=== PATIENT | male | born 1990 | race Caucasian/White ===

== ENCOUNTER 2016-09-11 15:40 | Emergency (ER) | payer OTHER ==
[2016-09-11 15:57] VITALS: BP 126/83; PULSE 78; TEMP 97.5; BMI 24.0
--- NOTE | 2016-09-11 17:36 | PDOC ---
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 The patient states that she was riding a bus today when she began to feel increased anxiety triggered by audible hallucinations, claustrophobia, and paranoia (feels like people are watching me). The patient reports that on Wednesday his psychiatrist halved his dose of Seroquel. The patient states that today he went back to his psychiatrist regarding his symptoms and was prescribed Quetiapine and Fluoxetine in addition to his current medications Geodon, Prozac, and Seroquel (started 08/11/16). The patient states that earlier he was today hearing voices but currently he is not. The patient reports associated difficulty breathing, head numbness. The patient denies suicidal thoughts, homicidal thoughts, and hallucinations. The patient denies fever, chills, and sweats. The patient denies nausea, vomiting, and diarrhea. The patient denies chest pain, palpitations, cough, and shortness of breath. Psychiatrist: Dr. Vinnie Mei: [phone] PAST MEDICAL HISTORY: Anxiety, hallucinations, depression, TBI (age 7) PAST SURGICAL HISTORY: No significant history reported FAMILY HISTORY: No pertinent history reported SOCIAL HISTORY: None reported MEDICATIONS: Reviewed ALLERGIES: As per nursing notes <Benjamín Corona - Last Filed: 09/11/16 17:49> - General Chief Complaint: Psychiatric Stated Complaint: ANXIETY Time Seen by Provider: 09/11/16 15:52 Past History - Immunization History Immunization Up to Date: Yes - Social History Smoking Status: Former smoker Number of Cigarettes Per Day: 0 <Lynne Leon - Last Filed: 09/11/16 17:43> <Benjamín Corona - Last Filed: 09/11/16 17:49> - Past Medical History Allergies/Adverse Reactions: Allergies No Known Allergies Allergy (Verified 09/11/16 15:44) Home Medications: Ambulatory Orders NK [No Known Home Medication] 09/11/16 *Review of Systems - Review of Systems Able to Perform ROS?: Yes Comments:: 09/11/16 17:41 GENERAL/CONSTITUTIONAL: Yes: Anxiety No: fever, chills, weakness, loss of appetite. HEAD, EYES, EARS, NOSE AND THROAT: No: change in vision, ear pain, discharge, sore throat, throat swelling. CARDIOVASCULAR: No: chest pain, lightheadedness, palpitations, syncope RESPIRATORY: Yes: Difficulty breathing No: cough, hemoptysis, stridor. GASTROINTESTINAL: No: nausea, vomiting, abdominal cramping, diarrhea, rectal bleeding, constipation. GENITOURINARY: No: dysuria, hematuria, frequency, urgency, flank pain. MUSCULOSKELETAL: No: back pain, neck pain, joint pain, muscle swelling or pain SKIN: No: lesions, pallor, rash or easy bruising. NEUROLOGIC: Yes: Head numbness, Audible hallucinations, Paranoia, Claustrophobia No: vertigo, paresthesias, weakness ENDOCRINE: No: unexplained weight gain or loss HEMATOLOGIC/LYMPHATIC: No: anemia, easy bleeding, swelling nodes <Benjamín Corona - Last Filed: 09/11/16 17:49> *Physical Exam - Vital Signs Last Vital Signs Temp Pulse Resp BP Pulse Ox 97.5 F L 78 18 126/83 100 09/11/16 15:40 09/11/16 15:40 09/11/16 15:40 09/11/16 15:40 09/11/16 15:40 <Lynne Leon - Last Filed: 09/11/16 17:43> - Vital Signs Last Vital Signs Temp Pulse Resp BP Pulse Ox 97.5 F L 78 18 126/83 100 09/11/16 15:40 09/11/16 15:40 09/11/16 15:40 09/11/16 15:40 09/11/16 15:40 - Physical Exam Comments: 09/11/16 17:41 GENERAL: The patient is anxious appearing. In no acute distress. Alert and oriented x3 HEAD: Normal with no signs of trauma. EYES: (+) Bilaterally dilated pupils 6mm minimal constriction , EOMI, sclera anicteric, conjunctiva clear. ENT: Ears normal, nares patent, oropharynx clear without exudates. Moist mucous membranes. NECK: Normal range of motion, supple without lymphadenopathy, JVD, or masses. LUNGS: Breath sounds equal, clear to auscultation bilaterally. No wheezes, and no crackles. HEART:Regular rate and rhythm, normal S1 and S2 without murmur, rub or gallop. ABDOMEN: Soft, nontender, normoactive bowel sounds. No guarding, no rebound. EXTREMITIES: Normal range of motion, no edema. No clubbing or cyanosis. No erythema, or tenderness. NEUROLOGICAL: Cranial nerves II through XII grossly intact. Normal speech. No focal neurological deficits. MUSCULOSKELETAL: Back nontender to palpation, no CVA tenderness SKIN: Warm, Dry, normal turgor, no rashes or lesions noted. <Benjamín Corona - Last Filed: 09/11/16 17:49> Plan - Progress Note Progress Note: 09/11/16 17:26 - Order(s) Order(s): Orders Medication Instructions Recorded NK [No Known Home Medication] 09/11/16 <Lynne Leon - Last Filed: 09/11/16 17:43> - Order(s) Order(s): Orders Medication Instructions Recorded NK [No Known Home Medication] 09/11/16 <Benjamín Corona - Last Filed: 09/11/16 17:49> *DC/Admit/Observation/Transfer - Discharge Dispostion Admit: No <Lynne Leon - Last Filed: 09/11/16 17:43> - Attestations Scribe Attestion: 09/11/16 17:42 Documentation prepared by Benjamín Corona, acting as medical staff manager for Lynne Leon MD. <Benjamín Corona - Last Filed: 09/11/16 17:49> Diagnosis at time of Disposition: Anxiety - Discharge Dispostion Disposition: HOME Condition at time of disposition: Stable - Patient Instructions Printed Discharge Instructions: DI for Anxiety -- Adult Additional Instructions: Rocco Thank you for coming in to the ER today Please return to the ER immediately if you feel unsafe or if you feel that you are going to harm yourself YOU MUST check in with Dr Ferguson in 2 days Please take Seroquel 25mg (your new prescription) at night along with your prior prescription for Seroquel 200mg daily Medical Decision Making - Medical Decision Making 09/11/16 17:27 A portion of this note was documented by scribe services under my direction. I have reviewed the details of the note, within reason, and agree with the documentation with the following case summary and management plan written by me. Nursing documentation reviewed and incorporated into medical decision making This is a 26 yo M with a history of Schizophrenia and Anxiety Pt is followed by Dr Ferguson at [facility] History is per him Briefly, pt came to psychiatric attention approximately 14 months ago when he attempted suicide by hanging and drinking mouth wash Pt was hospitalized at that time He was started on three medications PT was lost to follow up to Dr. Ferguson He recently returned to this area He has since had a three week psychiatric admission to [facility] HE was discharged several weeks ago He was discharged on Seroquel 200mg po daily (am), Fluoxetine 20 mg po daily, Geodon 80mg po BID Pt was asked last week to switch Seroquel to 200mg po qhs instead of am to decrease his somnolence PT was seen by his psychiatrist today Dr Ferguson added Seroquel 25mg to his night time dose of Seroquel 200mg qhs Pt denies suicidality PT denies homicidality He hears voices but none are telling him to do anything dangerous to anyone Pt believes that his medications were changed such that he is not longer bid Case reviewed with Dr Ferguson He requests that I re assure this patient Given he is not suicidal or homicidal Will: Discharge to home Will re assure patient re: plan for follow up on Wednesday <Lynne Leon - Last Filed: 09/11/16 17:43> - Medical Decision Making 09/11/16 16:[address] Vinnie Rangel placed. 09/11/16 16:[address] Vinnie Rangel placed. 09/11/16 17:04 Dr. Vinnie Rangel return call to ER. Case discussed. Agreed to discharge. <Benjamín Corona - Last Filed: 09/11/16 17:49>
== END 2016-09-11 17:55 | disposition home or self-care (01) ==
LOC: FER 15:40
DX: F41.9 Anxiety disorder, unspecified (principal); Z87.820 Personal history of traumatic brain injury; Z87.891 Personal history of nicotine dependence
CPT/HCPCS: 99282-25

== ENCOUNTER 2016-09-15 14:07 | Emergency (ER) | payer OTHER ==
[2016-09-15 14:17] VITALS: TEMP 97.8; BMI 24.0
[2016-09-15 14:55] LABS: URINE APPEARANCE CLEAR; URINE BILIRUBIN NEGATIVE (NEGATIVE); URINE BLOOD NEGATIVE (NEGATIVE); URINE COLOR LTYELLOW; URINE GLUCOSE (UA) NEGATIVE (NEGATIVE); URINE KETONE NEGATIVE (NEGATIVE); URINE LEUK ESTERASE NEGATIVE (NEGATIVE); URINE NITRITE NEGATIVE (NEGATIVE); URINE PROTEIN NEGATIVE (NEGATIVE); URINE UROBILINOGEN NEGATIVE E.U./dl (0.2-1.0)
[2016-09-15 15:13] LABS: URINE MARIJUANA THC NEGATIVE ng/ml (CUTOFF=50)
--- NOTE | 2016-09-15 16:02 | PDOC ---
History of Present Illness - General History Source: Patient Exam Limitations: No Limitations - History of Present Illness Initial Comments: 09/15/16 16:02 The patient is a 26 year old male, with no significant past medical history who presents to the emergency department with feelings of paranoia and anxiety since wednesday. Patient reports feeling that the [place] were closing in on him, and having social anxiety in crowded areas. He denies hearing any voices. He denies any previous psychiatric evaluation or diagnosis . He denies having thoughts of hurting himself or others. No other complaints at this time. He denies any recent fevers, chills, headache or dizziness. He denies any recent nausea, vomit, diarrhea or constipation. Allergies: NKA Past surgical history: None Social History: Nonsmoker. <Rigo Cleaning - Last Filed: 09/15/16 16:02> - General History Source: Patient, Old Records Exam Limitations: No Limitations <Kadi Flores - Last Filed: 09/15/16 18:15> - General Chief Complaint: Psychiatric Stated Complaint: PARANOID/ANXIOUS Time Seen by Provider: 09/15/16 14:12 Past History <Rigo Cleaning - Last Filed: 09/15/16 16:02> - Past Medical History Anemia: No Asthma: No Cancer: No Cardiac Disorders: No CVA: No COPD: No CHF: No Dementia: No Diabetes: No GI Disorders: Yes (dificulty swallowing, GI is planned for 01/09/16) Disorders: No HTN: No Hypercholesterolemia: No Liver Disease: No Seizures: No Thyroid Disease: No Other medical history: HEAD INJURY AT 7 YERAS OF AGE, INTERNAL BLEEDING - Surgical History Abdominal Surgery: No Appendectomy: No Cardiac Surgery: No Cholecystectomy: No Lung Surgery: No Neurologic Surgery: No - Immunization History Immunization Up to Date: Yes - Psycho/Social/Smoking Cessation Hx Anxiety: Yes Suicidal Ideation: No (DENIES SUICIDAL IDEATION) Smoking History: Smoker current status UNK Have you smoked in the past 12 months: No Number of Cigarettes Smoked Daily: 0 Information on smoking cessation initiated: No Hx Alcohol Use: No Drug/Substance Use Hx: Yes Substance Use Type: None <Kadi Flores - Last Filed: 09/15/16 18:15> - Past Medical History Allergies/Adverse Reactions: Allergies Allergy/AdvReac Type Severity Reaction Status Date / Time pepper Allergy Verified 09/15/16 14:17 Home Medications: Ambulatory Orders NK [No Known Home Medication] 09/15/16 Review of Systems - Review of Systems Able to Perform ROS?: Yes Comments:: 09/15/16 16:02 CONSTITUTIONAL: Absent: fever, no chills, no fatigue EYES: Absent: visual changes ENT: Absent: ear pain, no sore throat CARDIOVASCULAR: Absent: chest pain, no palpitations RESPIRATORY: Absent: cough, no SOB GI: Absent: abdominal pain, no nausea, no vomiting, no constipation, no diarrhea GENITOURINARY: Absent: dysuria, no frequency, no hematuria MUSKULOSKELETAL: Absent: back pain, no arthralgia, no myalgia SKIN: Absent: rash NEURO: Absent: headache PSYCH: +paranoia and anxiety. <Rigo Cleaning - Last Filed: 09/15/16 16:02> *Physical Exam - Vital Signs Last Vital Signs Temp Pulse Resp BP Pulse Ox 97.8 F 87 18 133/75 97 09/15/16 14:14 09/15/16 14:14 09/15/16 14:14 09/15/16 14:14 09/15/16 14:14 - Physical Exam Comments: 09/15/16 16:02 GENERAL: Well developed, well nourished. Awake and alert. No acute distress. HEENT: Normocephalic, atraumatic. PERRLA, EOMI. No conjunctival pallor. Sclera are non- icteric. Moist mucous membranes. Oropharynx is clear. NECK: Supple. Full ROM. No JVD. Carotid pulses 2+ and symmetric, without bruits. No thyromegaly. No lymphadenopathy. CARDIOVASCULAR: Regular rate and rhythm. No murmurs, rubs, or gallops. Distal pulses are 2+ and symmetric. PULMONARY: No evidence of respiratory distress. Lungs clear to auscultation bilaterally. No wheezing, rales or rhonchi. ABDOMINAL: Soft. Non-tender. Non-distended. No rebound or guarding. No organomegaly. Normoactive bowel sounds. MUSCULOSKELETAL Normal range of motion at all joints. No bony deformities or tenderness. No CVA tenderness. EXTREMITIES: No cyanosis. No clubbing. No edema. No calf tenderness. SKIN: Warm and dry. Normal capillary refill. No rashes. No jaundice. NEUROLOGICAL: Alert, awake, appropriate. Cranial nerves 2-12 intact. No deficits to light touch and temperature in face, upper extremities and lower extremities. No motor deficits in the in face, upper extremities and lower extremities. Normoreflexic in the upper and lower extremities. Normal speech. Toes are down- going bilaterally. Gait is normal without ataxia. PSYCHIATRIC: Cooperative. Good eye contact. Appropriate mood and affect. <Rigo Cleaning - Last Filed: 09/15/16 16:02> - Vital Signs Last Vital Signs Temp Pulse Resp BP Pulse Ox 97.8 F 87 18 133/75 97 09/15/16 14:14 09/15/16 14:14 09/15/16 14:14 09/15/16 14:14 09/15/16 14:14 <Kadi Flores - Last Filed: 09/15/16 18:15> ED Treatment Course - ADDITIONAL ORDERS Additional order review: Laboratory Results 09/15/16 09/15/16 14:33 14:33 Urine Color Ltyellow Urine Appearance Clear Urine pH 5.0 Ur Specific [place] 1.019 Urine Protein Negative Urine Glucose (UA) Negative Urine Ketones Negative Urine Blood Negative Urine Nitrite Negative Urine Bilirubin Negative Urine Urobilinogen Negative Ur Leukocyte Esterase Negative Opiates Screen Negative Methadone Screen Negative Barbiturate Screen Negative Phencyclidine Screen Negative Ur Amphetamines Screen Negative MDMA (Ecstasy) Screen Negative Benzodiazepines Screen Negative Cocaine Screen Negative U Marijuana (THC) Screen Negative <Rigo Cleaning - Last Filed: 09/15/16 16:02> - LABORATORY CBC & Chemistry Diagram: 09/15/16 16:54 09/15/16 16:54 - ADDITIONAL ORDERS Additional order review: Laboratory Results 09/15/16 09/15/16 14:33 14:33 Urine Color Ltyellow Urine Appearance Clear Urine pH 5.0 Ur Specific [place] 1.019 Urine Protein Negative Urine Glucose (UA) Negative Urine Ketones Negative Urine Blood Negative Urine Nitrite Negative Urine Bilirubin Negative Urine Urobilinogen Negative Ur Leukocyte Esterase Negative Opiates Screen Negative Methadone Screen Negative Barbiturate Screen Negative Phencyclidine Screen Negative Ur Amphetamines Screen Negative MDMA (Ecstasy) Screen Negative Benzodiazepines Screen Negative Cocaine Screen Negative U Marijuana (THC) Screen Negative <Kadi Flores - Last Filed: 09/15/16 18:15> Medical Decision Making - Medical Decision Making 09/15/16 16:30 26-year-old male with no significant past medical history who presents to the emergency department with feeling paranoid; he also feels anxious. The patient is not hallucinating and he is not of danger to himself or anybody else. He denies homicidal and suicidal ideation. Differential diagnosis includes but is not limited to: Paranoia, delusions, electrolyte abnormality, toxic/metabolic derangement. Plan: 1. Labs 2. Urine 3. Will refer to psychiatry as an outpatient 4. Observe and reevaluate 09/15/16 18:12 Labs were reviewed and are noted in the EMR. We'll discharge the patient home and referred to by Apurva Varma for psychiatric counseling and evaluation. I 've advised the patient to return to the emergency department if his symptoms persist, worsen, or new symptoms arise or if he feels like he is a harm to himself or anyone else or experiences auditory or visual hallucinations. <Kadi Flores - Last Filed: 09/15/16 18:15> *DC/Admit/Observation/Transfer - Attestations Scribe Attestion: 09/15/16 16:02 Documentation prepared by Rigo Cleaning, acting as medical administrative specialist for Kadi Flores MD. <Rigo Cleaning - Last Filed: 09/15/16 16:02> - Discharge Dispostion Admit: No - Attestations Physician Attestion: 09/15/16 16:32 I, Dr. Kadi Flores, attest that the scribes documentation that appears above has been prepared under my direction and personally reviewed by me in its entirety. I confirmed that the note above accurately reflects all work, treatment, procedures, and medical decision-making performed by me. <Kadi Flores - Last Filed: 09/15/16 18:15> Diagnosis at time of Disposition: Anxiety - Discharge Dispostion Disposition: HOME Condition at time of disposition: Stable - Patient Instructions Additional Instructions: Follow-up with Apuvra Varma (nurse practitioner) [phone] for psychiatric counseling and evaluation. Please return to the emergency department if you are experiencing hallucinations, feelings that you want to hurt yourself or others, or any other symptoms.
[2016-09-15 17:30] LABS: BASOPHIL 0.4 % (0-2.0); MCH 30.1 pg (25.7-33.7); MCHC 34.1 g/dl (32.0-35.9); MEAN CELL VOLUME 88.2 fl (80-96); MEAN PLT VOLUME 8.7 fl (7.5-11.1); NEUTROPHILS 67.6 % (42.8-82.8); PLATELET COUNT 197 K/MM3 (134-434); RDW 13.4 % (11.9-15.9); WHITE BLOOD COUNT 6.9 K/mm3 (4.0-10.0)
[2016-09-15 17:58] LABS: CALCIUM 9.1 mg/dL (8.5-10.1); MAGNESIUM 2.2 mg/dL (1.8-2.4); PHOSPHOROUS 3.3 mg/dL (2.5-4.9)
[2016-09-15 18:25] VITALS: BP 126/80; PULSE 88
== END 2016-09-15 18:25 | disposition home or self-care (01) ==
LOC: JER 14:07
DX: F41.9 Anxiety disorder, unspecified (principal)
CPT/HCPCS: 36415; 80048; 80307; 81003; 83735; 84100; 85025; 99283-25

== ENCOUNTER 2016-09-28 15:54 | Emergency (ER) | payer OTHER ==
[2016-09-28 16:03] VITALS: BP 104/83; PULSE 71; TEMP 98; BMI 24.0
--- NOTE | 2016-09-28 16:59 | PDOC ---
History of Present Illness - General Chief Complaint: Allergic Reaction Stated Complaint: NASAL CONGESTION (ALLERGIC RXN) Time Seen by Provider: 09/28/16 16:04 History Source: Patient Exam Limitations: No Limitations - History of Present Illness Initial Comments: 09/28/16 16:53 26 yr male with c/o nasal congestion for one month. Pt states he feels clogged at night. no head trauma or LOC. 09/28/16 16:54 Past History - Past Medical History Allergies/Adverse Reactions: Allergies Allergy/AdvReac Type Severity Reaction Status Date / Time pepper Allergy Verified 09/28/16 15:59 Home Medications: Ambulatory Orders Fluticasone Prop 0.05% Nasal [Flonase -] 1 - 2 spray NS DAILY #1 spray.pump 01/09 Anemia: No Asthma: No Cancer: No Cardiac Disorders: No CVA: No COPD: No CHF: No Dementia: No Diabetes: No GI Disorders: Yes (dificulty swallowing, GI is planned for 01/09/16) Disorders: No HTN: No Hypercholesterolemia: No Liver Disease: No Seizures: No Thyroid Disease: No - Surgical History Abdominal Surgery: No Appendectomy: No Cardiac Surgery: No Cholecystectomy: No Lung Surgery: No Neurologic Surgery: No - Immunization History Immunization Up to Date: Yes - Psycho/Social/Smoking Cessation Hx Anxiety: Yes Suicidal Ideation: No (DENIES SUICIDAL IDEATION) Smoking History: Smoker current status UNK Have you smoked in the past 12 months: No Number of Cigarettes Smoked Daily: 0 Information on smoking cessation initiated: No Hx Alcohol Use: No Drug/Substance Use Hx: No Substance Use Type: None Review of Systems - Review of Systems Able to Perform ROS?: Yes Is the patient limited Georgian proficient: No Constitutional: No: Symptoms Reported HEENTM: Yes: Symptoms Reported, Nose Congestion Respiratory: No: Symptoms reported Cardiac (ROS): No: Symptoms Reported ABD/GI: No: Symptoms Reported : No: Symptoms Reported Musculoskeletal: No: Symptoms Reported Integumentary: No: Symptoms Reported Neurological: No: Symptoms reported *Physical Exam - Vital Signs Last Vital Signs Temp Pulse Resp BP Pulse Ox 98.0 F 71 18 104/83 100 09/28/16 16:00 09/28/16 16:00 09/28/16 16:00 09/28/16 16:00 09/28/16 16:00 - Physical Exam General Appearance: Yes: Nourished, Appropriately Dressed HEENT: positive: EOMI, NANDA, Nasal Congestion Neck: positive: Supple Respiratory/Chest: positive: Lungs Clear, Normal Breath Sounds Cardiovascular: positive: Regular Rhythm, Regular Rate Gastrointestinal/Abdominal: positive: Normal Bowel Sounds, Soft Musculoskeletal: positive: Normal Inspection Extremity: positive: Normal Capillary Refill, Normal Inspection, Normal Range of Motion Integumentary: positive: Normal Color, Dry, Warm Neurologic: positive: Fully Oriented, Alert, Normal Mood/Affect, Normal Response , Motor Strength / Medical Decision Making - Medical Decision Making 09/28/16 16:56 cc: nasal congestion for one month since moving to [facility] from [facility] and aquiring a dog. pt denies sneezing or sore throat pt has history of anxiety *DC/Admit/Observation/Transfer Diagnosis at time of Disposition: Nasal congestion - Discharge Dispostion Disposition: HOME Condition at time of disposition: Good - Prescriptions Prescriptions: Fluticasone Prop 0.05% Nasal [Flonase -] 1 - 2 spray NS DAILY #1 spray.pump - Patient Instructions Additional Instructions: use flonase as directed for congestion follow with ENT for follow up if no improvement
== END 2016-09-28 17:04 | disposition home or self-care (01) ==
LOC: JERFT 15:54
DX: R09.81 Nasal congestion (principal)
CPT/HCPCS: 99281-25

== ENCOUNTER 2016-12-04 16:30 | Emergency (ER) | payer OTHER ==
[2016-12-04 16:40] VITALS: BP 108/66; PULSE 76; TEMP 97.9; BMI 24.0
[2016-12-04] MEDS ORDERED: ACETAMINOPHEN 500 MG TABLET (FP) PO ONE (18:41)
--- NOTE | 2016-12-04 18:46 | PDOC ---
History of Present Illness - General Chief Complaint: Head/Neck problem Stated Complaint: HEAD INJURY/LOSS OF MEMORY Time Seen by Provider: 12/04/16 16:53 History Source: Patient Exam Limitations: No Limitations - History of Present Illness Initial Comments: 12/04/16 18:48 Chief complaint: Memory loss since fall History of present illness: Patient is a 26-year-old male with a history about benigh prosthetic hypertrophy, binge eating disorder, generalized anxiety disorder, posttraumatic stress disorder, attention deficit hyperactivity disorder, obsessive-compulsive disorder and this associative identity disorder today complaining of memory loss since falling off his skateboard 2 weeks ago. Patient reports that he forgets what he stopped talking about at times when he is having a conversation. Patient currently is alert and oriented 3 and knows that he is at . Patient also reports having a headache right parietal and occipital area a 7 out of 10. Patient denies that he lost any consciousness 2 weeks ago and denies nausea, vomiting, dizziness, hemotympanum, or change in vision. 12/05/16 12:59 Occurred: reports: other (2 weeks ago ) Severity: reports: moderate Pain Location: reports: head Method of Injury: Yes: fall (2 weeks ago off a skateboard) Modifying Factors: improves with: None Loss of Consciousness: no loss of consciousness Associated Symptoms (Fall): headache (rt. parietal, occipital ), other ( forgetfulnees) Past History - Past Medical History Allergies/Adverse Reactions: Allergies Allergy/AdvReac Type Severity Reaction Status Date / Time pepper Allergy Verified 09/28/16 15:59 Home Medications: Ambulatory Orders Alfuzosin HCl [Uroxatral] 10 mg PO DAILY 12/04/16 Fluoxetine HCl [Prozac] 60 mg PO DAILY 12/04/16 Sertraline HCl [Zoloft] 50 mg PO DAILY 12/04/16 Anemia: No Asthma: No Cancer: No Cardiac Disorders: No CVA: No COPD: No CHF: No Dementia: No Diabetes: No GI Disorders: Yes (dificulty swallowing, GI is planned for 01/09/16) Disorders: Yes (BPH) HTN: No Hypercholesterolemia: No Liver Disease: No Seizures: No Thyroid Disease: No Other medical history: PTSD, OCD, ADHD, ANGIE, binge eating disorder, disassociative identity disord - Surgical History Abdominal Surgery: No Appendectomy: No Cardiac Surgery: No Cholecystectomy: No Lung Surgery: No Neurologic Surgery: No - Immunization History Immunization Up to Date: Yes - Psycho/Social/Smoking Cessation Hx Anxiety: Yes Suicidal Ideation: No Smoking History: Never smoked Have you smoked in the past 12 months: No Number of Cigarettes Smoked Daily: 0 Information on smoking cessation initiated: No Hx Alcohol Use: No Drug/Substance Use Hx: No Substance Use Type: None Review of Systems - Review of Systems Able to Perform ROS?: Yes Constitutional: No: Symptoms Reported HEENTM: No: Symptoms Reported Respiratory: No: Symptoms reported Cardiac (ROS): No: Symptoms Reported ABD/GI: No: Symptoms Reported : No: Symptoms Reported Musculoskeletal: No: Symptoms Reported Integumentary: No: Symptoms Reported Neurological: Yes: Headache (rt. parietal, occipital ), Pre-Existing Deficit (h/ o rt. frontalparietal craniotomy). No: Numbness, Paresthesia, Seizure, Tingling , Tremors, Weakness Psychiatric: Yes: Emotional Problems (h/o PTSH< ADD< OCD< ANGIE, binge eating disorder, disassociative identity disorder) *Physical Exam - Vital Signs Last Vital Signs Temp Pulse Resp BP Pulse Ox 97.9 F 76 18 108/66 99 12/04/16 16:36 12/04/16 16:36 12/04/16 16:36 12/04/16 16:36 12/04/16 16:36 - Physical Exam General Appearance: Yes: Appropriately Dressed HEENT: positive: EOMI, NANDA, Normal ENT Inspection Neck: negative: Tender, Lymphadenopathy (R), Lymphadenopathy (L), Rigidity, Tender lateral, Tender midline Respiratory/Chest: positive: Lungs Clear, Normal Breath Sounds. negative: Chest Tender, Respiratory Distress Cardiovascular: positive: Regular Rhythm, Regular Rate, S1, S2 Comments:: 12/04/16 18:46 Psych: Casually dressed, cooperative, engages easily and conversation. Mood: "calm", affect slightly constricted denies suicidal or homicidal ideations, auditory or visual hallucinations no loosening of associations, insight, judgment fair, alert and oriented 3, gait unimpaired Integumentary: positive: Normal Color Neurologic: positive: smash piecer II-XII NML intact, Fully Oriented (x 3 ), Alert, Normal Response, Motor Strength 5/5, Respond to painful stimul, Responsive. negative: Numbness, Sensory Deficit ED Treatment Course - RADIOLOGY Radiology Studies Ordered: Category Date Time Status HEAD CT WITHOUT CONTRAST [CT] Stat CT Scan 12/04/16 17:35 Completed Medical Decision Making - Medical Decision Making 12/04/16 18:48 12/04/16 18:50 Patient is a 26-year-old male with a history about benign prosthetic hypertrophy , binge eating disorder, generalized anxiety disorder, posttraumatic stress disorder, attention deficit hyperactivity disorder, obsessive-compulsive disorder and this associative identity disorder today complaining of memory loss since falling off his skateboard 2 weeks ago. Patient reports that he forgets what he stopped talking about at times when he is having a conversation. Patient currently is alert and oriented 3 and knows that he is at . Patient also reports having a headache right parietal and occipital area a 7 out of 10. Patient denies that he lost any consciousness 2 weeks ago and denies nausea, vomiting, dizziness, hemotympanum, or change in vision. She has been taking his psychiatric medication and is calm and able to answer all questions in exam room denies any other symptoms. rule Out intracranial bleeding Fall 2 weeks ago headache PLAN: CT of head without contrast status post right frontal parietal craniotomy otherwise exam is unremarkable without evidence of acute intracranial pathology per Dr. Valdez Patient to follow up with primary care provider within the next few days acetaminophen 1000 mg po 12/05/16 12:59 12/05/16 12:59 *DC/Admit/Observation/Transfer Diagnosis at time of Disposition: Post-concussion syndrome Headache Qualifiers: Headache type: post-traumatic Headache chronicity pattern: unspecified pattern Intractability: not intractable Qualified Code(s): G44.309 - Post-traumatic headache, unspecified, not intractable - Discharge Dispostion Disposition: HOME Condition at time of disposition: Stable - Referrals Referrals: Joyce Pate MD [Primary Care Provider] - - Patient Instructions Additional Instructions: Follow-up with primary care provider within the next few days Take acetaminophen as needed as directed by tarring machine operator for pain Return to emergency room if symptoms worsen Patient voiced understanding of discharge instructions and all questions were answered
[2016-12-04] MEDS ORDERED: ACETAMINOPHEN 500 MG TABLET (FP) ONE (18:47)
== END 2016-12-04 19:07 | disposition home or self-care (01) ==
LOC: JERFT 16:30
DX: F07.81 Postconcussional syndrome (principal); G44.319 Acute post-traumatic headache, not intractable; F42.2 Mixed obsessional thoughts and acts; F43.10 Post-traumatic stress disorder, unspecified; F90.9 Attention-deficit hyperactivity disorder, unspecified type; F42.9 Obsessive-compulsive disorder, unspecified; F44.89 Other dissociative and conversion disorders; V00.131A Fall from skateboard, initial encounter; Y92.488 Other paved roadways as the place of occurrence of the external cause; Y93.51 Activity, roller skating (inline) and skateboarding; Y99.8 Other external cause status
CPT/HCPCS: 70450-TC; 99281-25

== ENCOUNTER 2017-02-21 12:39 | Emergency (ER) | payer OTHER ==
[2017-02-21 12:44] VITALS: BP 114/88; PULSE 97; TEMP 98.1; BMI 24.5
[2017-02-21] MEDS ORDERED: ACETAMINOPHEN 325 MG TABLET (FP) ONE (13:09)
--- NOTE | 2017-02-21 14:15 | PDOC ---
Attending Attestation - Resident Resident Name: Veronica Marcelino - ED Attending Attestation I have performed the following: I have examined & evaluated the patient, The case was reviewed & discussed with the resident, I agree w/resident's findings & plan, Exceptions are as noted - HPI HPI: 02/21/17 14:12 26-year-old male with history of BPH, generalized anxiety disorder, PTSD, ADHD, obsessive-compulsive disorder, questionable schizoaffective disorder presents with depression. The patient reports that for months he's been having difficulty concentrating and memory loss. He believes that is secondary to his risperidone and Zoloft. He has a psychiatrist up in [facility] but reports takes 2 hours to see him in to go back and forth. He is in a daycare program up in [place] where he goes to 6 hours a day. Today, patient was painting in his father's room. Stated that his symptoms were bothering him and given a recent bad experience with his psychiatrist and 30 was removed, he is interested in finding a new psychiatrist. Denies suicidal ideation and homicidal ideation. Denies ingestions. - Physicial Exam PE: 02/21/17 14:12 GENERAL: Awake, alert, and fully oriented, in no acute distress. HEAD: No signs of trauma EYES: PERRLA, EOMI, sclera anicteric, conjunctiva clear ENT: Auricles normal inspection, hearing grossly normal, nares patent, oropharynx clear without exudates. NECK: Normal ROM, supple, no lymphadenopathy, JVD, or masses LUNGS: Breath sounds equal, clear to auscultation bilaterally. No wheezes, and no crackles HEART: Regular rate and rhythm, normal S1 and S2, no murmurs, rubs or gallops ABDOMEN: Soft, nontender, normoactive bowel sounds. No guarding, no rebound. No masses EXTREMITIES: Normal range of motion, no edema. No clubbing or cyanosis. No cords, erythema, or tenderness NEUROLOGICAL: Cranial nerves II through XII grossly intact. Normal speech, normal gait SKIN: Warm, Dry, normal turgor, no rashes or lesions noted. PSYCH: Calm, cooperative. - Medical Decision Making 02/21/17 14:12 Vital Signs Temp Pulse Resp BP Pulse Ox 98.1 F 97 H 20 114/88 97 02/21/17 12:40 02/21/17 12:40 02/21/17 12:40 02/21/17 12:40 02/21/17 12:40 The patient initially requested to have his medications tapered off. However, we advised the patient that he would benefit from an outpatient psychiatrist closer to his home. station worker was consulted to give him a list. There is no acute psychiatric problems at this time. Patient is safe for discharge. Patient agrees with plan for outpatient management. 02/21/17 14:53 Case management Annabel had seen the patient. Patient can be discharged.
--- NOTE | 2017-02-21 14:44 | PDOC ---
History of Present Illness - General Chief Complaint: Psychiatric Stated Complaint: CONFUSED Time Seen by Provider: 02/21/17 13:00 History Source: Patient - History of Present Illness Initial Comments: 26Mwith history of BPH, generalized anxiety disorder, PTSD, ADHD, OCD, questionable paranoid schizophrenia and bipolar disorder. Patient reports difficulty concentrating and memory loss since July, when he was started on Prozac, Seroquel and Geodone. He was then switched to Risperidone and Zoloft but the symptoms persisted. He sees Dr. Vinnie Mei at [facility] in [facility] a hour away from him.. He is in a daycare program there from 10 to 3pm mon-fri. Today, patient was painting the wall at his stepfather's place before leaving without telling anyone.. Stated that his symptoms were bothering him and frustrated that his psychiatrists diagnosed him with schizophrenia and bipolar disorder which he doesn't believe he has. Want a second opinion and different medication. Denies suicidal and homicidal ideation and drug use, Associated Symptoms: impaired concentration Past History - Past Medical History Allergies/Adverse Reactions: Allergies No Known Allergies Allergy (Verified 02/21/17 12:44) Home Medications: Ambulatory Orders Alfuzosin HCl [Uroxatral] 10 mg PO DAILY 12/04/16 Fluoxetine HCl [Prozac] 60 mg PO DAILY 12/04/16 Sertraline HCl [Zoloft] 50 mg PO DAILY 12/04/16 - Immunization History Immunization Up to Date: Yes - Social History Smoking Status: Current some day smoker Number of Cigarettes Per Day: 2 *Review of Systems - Review of Systems Constitutional: No: Symptoms Reported HEENTM: No: Symptoms Reported Respiratory: No: Symptoms reported Cardiac (ROS): No: Symptoms Reported ABD/GI: No: Symptoms Reported : No: Symptoms Reported Musculoskeletal: No: Symptoms Reported Integumentary: No: Symptoms Reported Neurological: No: Symptoms reported *Physical Exam - Vital Signs Last Vital Signs Temp Pulse Resp BP Pulse Ox 98.1 F 97 H 20 114/88 97 02/21/17 12:40 02/21/17 12:40 02/21/17 12:40 02/21/17 12:40 02/21/17 12:40 - Physical Exam General Appearance: Yes: Nourished, Appropriately Dressed. No: Apparent Distress HEENT: positive: EOMI, NANDA Neck: positive: Trachea midline, Normal Thyroid, Supple. negative: Tender Respiratory/Chest: positive: Lungs Clear, Normal Breath Sounds. negative: Chest Tender, Respiratory Distress Cardiovascular: positive: Regular Rhythm, Regular Rate, S1, S2 Neurologic: positive: Fully Oriented, Alert, Depressed Affect Plan - Progress Note Progress Note: 02/21/17 14:49 Patient advised against quitting medications abruptly and convinced to try seeing a therapist closer to home instead. garnett room worker to provide him with information packet. Follow up with outpatient management. Safe to D/c *DC/Admit/Observation/Transfer Diagnosis at time of Disposition: Depression
== END 2017-02-21 15:14 | disposition home or self-care (01) ==
LOC: JER 12:39
DX: F32.89 Other specified depressive episodes (principal); F41.1 Generalized anxiety disorder; F90.9 Attention-deficit hyperactivity disorder, unspecified type; F43.10 Post-traumatic stress disorder, unspecified; F42.9 Obsessive-compulsive disorder, unspecified; N40.0 Benign prostatic hyperplasia without lower urinary tract symptoms
CPT/HCPCS: 99282-25

== ENCOUNTER 2017-05-01 12:48 | Emergency (ER) | payer OTHER ==
[2017-05-01 12:53] VITALS: BP 142/80; PULSE 73; TEMP 98.5; BMI 24.3
--- NOTE | 2017-05-01 13:37 | PDOC ---
History of Present Illness - General Chief Complaint: Injury Stated Complaint: LT ANKLE PAIN Time Seen by Provider: 05/01/17 13:05 History Source: Patient Exam Limitations: No Limitations - History of Present Illness Initial Comments: 05/01/17 15:22 Patient states was at the gym, fell and twisted his left ankle one week ago. States has pain but did not feel was significant. Return to the gym on Wednesday but worsened the pain. Since that time has become ecchymotic and swollen. Came today for evaluation Occurred: reports: just prior to arrival Severity: reports: mild Pain Location: reports: lower extremity (left leg ) Method of Injury: Yes: fall Associated Symptoms (Fall): denies symptoms Past History - Travel Traveled outside of the country in the last 30 days: No Close contact w/someone who was outside of country & ill: No - Past Medical History Allergies/Adverse Reactions: Allergies Allergy/AdvReac Type Severity Reaction Status Date / Time No Known Allergies Allergy Verified 05/01/17 12:53 Home Medications: Ambulatory Orders Sertraline HCl [Zoloft] 100 mg PO DAILY 12/04/16 Risperidone 3 mg PO DAILY 02/21/17 Quetiapine Fumarate [Seroquel -] 50 mg PO HS 05/01/17 Anemia: No Asthma: No Cancer: No Cardiac Disorders: No CVA: No COPD: No CHF: No Dementia: No Diabetes: No GI Disorders: Yes (dificulty swallowing) Disorders: Yes (BPH ?) HTN: No Hypercholesterolemia: No Liver Disease: No Psychiatric Problems: Yes (SHIZOPHRENIA/ BIPOLAR.) Seizures: No Thyroid Disease: No - Surgical History Abdominal Surgery: No Appendectomy: No Cardiac Surgery: No Cholecystectomy: No Lung Surgery: No Neurologic Surgery: Yes (HEAD) - Immunization History Immunization Up to Date: Yes - Suicide/Smoking/Psychosocial Hx Smoking History: Current every day smoker Have you smoked in the past 12 months: No Number of Cigarettes Smoked Daily: 1 Information on smoking cessation initiated: Yes 'Breaking Loose' booklet given: 05/01/17 Hx Alcohol Use: No Drug/Substance Use Hx: No Substance Use Type: None Trauma Specific PMHX - Complaint Specific PMHX Back Injury: No Neck Injury: No Review of Systems - Review of Systems Able to Perform ROS?: Yes Is the patient limited Salvadorean proficient: Yes Constitutional: Yes: Symptoms Reported, See HPI. No: Malaise HEENTM: Yes: See HPI. No: Symptoms Reported Musculoskeletal: Yes: Symptoms Reported, See HPI, Joint Pain, Joint Swelling Integumentary: Yes: Symptoms Reported, See HPI, Bruising Neurological: No: Symptoms reported All Other Systems: Reviewed and Negative *Physical Exam - Vital Signs Last Vital Signs Temp Pulse Resp BP Pulse Ox 98.5 F 73 18 142/80 99 05/01/17 12:50 05/01/17 12:50 05/01/17 12:50 05/01/17 12:50 05/01/17 12:50 - Physical Exam General Appearance: Yes: Nourished, Appropriately Dressed, Apparent Distress HEENT: positive: NANDA, Normal ENT Inspection, TMs Normal, Pharynx Normal Respiratory/Chest: positive: Chest Tender Gastrointestinal/Abdominal: positive: Soft Musculoskeletal: positive: Decreased Range of Motion Extremity: positive: Normal Capillary Refill, Normal Inspection, Swelling Integumentary: positive: Dry, Ecchymosis, Bruising (patient with point tenderness to the lateral aspect of left midfoot. No true fifth metatarsal or navicular tenderness, negative malleoli or tenderness see bilaterally. Negative squeeze test.). negative: Normal Color Neurologic: positive: health care administrator II-XII NML intact, Fully Oriented, Alert, Normal Mood/ Affect, Normal Response, Motor Strength 5/5 Procedures - Splinting Splint Location: Left: Ankle Pre-Proc Neuro Vasc Exam: normal Post-Proc Neuro Vasc Exam: normal Paul Bandage: yes, 4" ED Treatment Course - RADIOLOGY Radiology Studies Ordered: Category Date Time Status ANKLE-LEFT [RAD] Stat Radiology 05/01/17 13:33 Ordered Progress Note - Progress Note Progress Note: Left ankle sprain, Paul, Aircast and crutches provided with ibuprofen for pain relief *DC/Admit/Observation/Transfer Diagnosis at time of Disposition: Right ankle sprain Qualifiers: Encounter type: initial encounter Involved ligament of ankle: other ligament Qualified Code(s): S93.491A - Sprain of other ligament of right ankle, initial encounter - Discharge Dispostion Disposition: HOME Condition at time of disposition: Stable Admit: No - Referrals Referrals: Joyce Pate MD [Primary Care Provider] - - Patient Instructions Printed Discharge Instructions: DI for Ankle Sprain Additional Instructions: Rest, ice to area on and off for 15 minutes 4-6 times a day Avoid heavy lifting or exercise until pain and swelling is resolved or until further directed Keep area highly elevated to reduce swelling Use splints/Paul wrap as directed Followup with orthopedist in one to 2 days if not improving, if significantly improved may wait one week for followup with orthopedist May use ibuprofen 2-200 mg tablets every 6 hours as needed for pain - Post Discharge Activity Forms/Work/School Notes: Back to School, Back to Work
== END 2017-05-01 15:11 | disposition home or self-care (01) ==
LOC: JERFT 12:48
PROC: 2W3RX1Z Immobilization of Left Lower Leg using Splint (ICD-10-PCS; principal; 2017-05-01)
DX: S93.492A Sprain of other ligament of left ankle, initial encounter (principal); X50.0XXA Overexertion from strenuous movement or load, initial encounter; Y93.79 Activity, other specified sports and athletics; Y92.39 Other specified sports and athletic area as the place of occurrence of the external cause
CPT/HCPCS: 29515; 73610-TC-LT; 99281-25

== ENCOUNTER 2017-05-16 19:18 | Emergency (ER) | payer OTHER ==
--- NOTE | 2017-05-16 19:29 | PDOC ---
History of Present Illness - History of Present Illness Initial Comments: 05/16/17 20:19 The patient is a 27 year old male, with a past medical history of BPH, generalized anxiety disorder, PTSD, ADHD, OCD, questionable paranoid schizophrenia and bipolar disorder, who presents to the emergency department with increased urinary frequency and dysuria since January 2015. The patient reports he has a problem with masturbating and reports the dysuria is worse after masturbation. He states he will masturbate at least 4 times a day. He states he has an appointment with a urologist on [facility] this week. He reports unprotected sex with a female partner approximately 3 months ago. He denies penile discharge. He denies chest pain, shortness of breath, headache and dizziness. He denies fever, chills, nausea, vomit, diarrhea and constipation. He denies dysuria, frequency, urgency and hematuria. PAST MEDICAL HISTORY: no significant history PAST SURGICAL HISTORY: no significant history FAMILY HISTORY: no pertinent history SOCIAL HISTORY: Pt lives with family and is employed. MEDICATIONS: reviewed ALLERGIES: As per nursing notes Adult ROS General: No fevers or chills, no weakness, no weight loss HEENT: No change in vision. No sore throat,. No ear pain CardioVascular: No chest pain or shortness of breath Respiratory:No cough, or wheezing. Gastrointestinal: no nausea, vomiting, diarrhea or constipation, No rectal bleeding Genitourinary: (+) dysuria, frequency. No hematuria Musculoskeletal: No joint or muscle pain or swelling Neurologic: No headache, vertigo, dizziness or loss of consciousness Psychiatric: nor depression Skin: No rashes or easy bruising Endocrine: no increased thirst or abnormal weight change Allergic: no skin or latex allergy All other systems reviewed and normal Adult Exam: General: Well-nourished well-developed individual, no acute distress HEENT: Throat: Normal, tonsils normal, no erythema or exudate Neck: Supple, no meningeal signs, no lymphadenopathy Eyes::Pupils equal reactive and round, extraocular motion intact Chest: Nontender to palpation Cardiac: S1-S2 normal, regular rate and rhythm, no murmurs rubs or gallops Respiratory: Lungs clear to auscultation bilateral Abdomen: Soft, nondistended, normal bowel sounds, nontender to palpation diffusely Extremities: Warm, dry, no cyanosis, clubbing, or edema Skin: No rashes Neuro: Alert and oriented x3, nonfocal exam, grossly intact, normal gait Psych: Normal mood and affect Genitourinary: (+) chaperoned by male nurse. Patient had an erection throughout exam. Circumcised penis, no lesions or discharge. Testicles descended bilateral , no testicular masses, cremaster reflexes normal bilaterally, no groin lymphadenopathy. No flank, back or CVA tenderness <Rohini Lord - Last Filed: 05/16/17 20:18> - General History Source: Patient Exam Limitations: No Limitations - History of Present Illness Initial Comments: A portion of this note was documented by scribe services under my direction. I have reviewed the details of the note, within reason, and agree with the documentation. The case summary and management plan written by me. Assessment and plan: This is a 27-year-old male who comes in complaining of urinary frequency. Patient stated during the interview that he has had unprotected sex 3 months ago and masturbates multiple times a day. Patient is seeing a urologist and has an appointment on Wednesday.. Patient denies any back or flank pain. Patient had a normal exam Chlamydia and GC cultures were sent. Patient was treated presumptive STDs as he did have unprotected sex prior to the start of the symptoms. Patient will keep his appointment with his urologist for Wednesday. <Jax Monzon I - Last Filed: 05/16/17 20:25> - General Chief Complaint: Urinary Problem Stated Complaint: URINARY FREQUENCY Time Seen by Provider: 05/16/17 19:29 Past History <Rohini Lord - Last Filed: 05/16/17 20:18> - Past Medical History Anemia: No Asthma: No Cancer: No Cardiac Disorders: No CVA: No COPD: No CHF: No Dementia: No Diabetes: No GI Disorders: Yes (dificulty swallowing) Disorders: Yes (BPH ?) HTN: No Hypercholesterolemia: No Liver Disease: No Psychiatric Problems: Yes (SHIZOPHRENIA/ BIPOLAR.) Seizures: No Thyroid Disease: No - Surgical History Abdominal Surgery: No Appendectomy: No Cardiac Surgery: No Cholecystectomy: No Lung Surgery: No Neurologic Surgery: Yes (HEAD) - Immunization History Immunization Up to Date: Yes - Suicide/Smoking/Psychosocial Hx Smoking History: Current every day smoker Have you smoked in the past 12 months: No Number of Cigarettes Smoked Daily: 1 Information on smoking cessation initiated: Yes 'Breaking Loose' booklet given: 05/01/17 Hx Alcohol Use: No Drug/Substance Use Hx: No Substance Use Type: None <Jax Monzon I - Last Filed: 05/16/17 20:25> - Past Medical History Allergies/Adverse Reactions: Allergies Allergy/AdvReac Type Severity Reaction Status Date / Time No Known Allergies Allergy Verified 05/16/17 19:34 Home Medications: Ambulatory Orders Sertraline HCl [Zoloft] 100 mg PO DAILY 12/04/16 Quetiapine Fumarate [Seroquel -] 50 mg PO HS 05/01/17 *Physical Exam - Vital Signs Last Vital Signs Temp Pulse Resp BP Pulse Ox 98.2 F 68 18 118/74 99 05/16/17 19:20 05/16/17 19:20 05/16/17 19:20 05/16/17 19:20 05/16/17 19:20 <Rohini Lord - Last Filed: 05/16/17 20:18> - Vital Signs Last Vital Signs Temp Pulse Resp BP Pulse Ox 98.2 F 68 18 118/74 99 05/16/17 19:20 05/16/17 19:20 05/16/17 19:20 05/16/17 19:20 05/16/17 19:20 <Jax Monzon I - Last Filed: 05/16/17 20:25> ED Treatment Course - ADDITIONAL ORDERS Additional order review: Laboratory Results 05/16/17 19:45 Urine Color Yellow Urine Appearance Clear Urine pH 5.5 Ur Specific [place] >= 1.030 H Urine Protein Negative Urine Glucose (UA) Negative Urine Ketones Negative Urine Blood 1+ H Urine Nitrite Negative Urine Bilirubin Negative Urine Urobilinogen 0.2 Ur Leukocyte Esterase Negative <Rohini Lord - Last Filed: 05/16/17 20:18> *DC/Admit/Observation/Transfer - Attestations Scribe Attestion: 05/16/17 20:19 Documentation prepared by Rohini Lord, acting as medical clinic manager for Jax Monzon MD <Rohini Lord - Last Filed: 05/16/17 20:18> <Jax Monzon I - Last Filed: 05/16/17 20:25> Diagnosis at time of Disposition: Increased frequency of urination - Discharge Dispostion Disposition: HOME - Patient Instructions Additional Instructions: If any of your cultures come back positive your partner will need to be notified. Return to the emergency department immediately with ANY new, persistent or worsening symptoms. Continue any medications as previously prescribed by your physician. Keep your appointment with your urologist for this week . Please make sure your doctor reviews the results of your emergency evaluation. Thank you for coming to the Emergency Department today for your care. It was a pleasure to see you today. Please note that your evaluation is INCOMPLETE until you follow-up with your doctor.
[2017-05-16 19:30] VITALS: BP 118/74; PULSE 68; TEMP 98.2; BMI 24.3
[2017-05-16 19:47] LABS: PH,URINE 5.5 (4.5-8); URINE APPEARANCE Clear; URINE BILIRUBIN Negative (NEGATIVE); URINE GLUCOSE (UA) Negative (NEGATIVE); URINE KETONE Negative (NEGATIVE); URINE LEUK ESTERASE Negative (NEGATIVE); URINE NITRITE Negative (NEGATIVE); URINE PROTEIN Negative (NEGATIVE); URINE UROBILINOGEN 0.2 (0.2-1.0)
[2017-05-16 19:49] LABS: URINE BLOOD 1+ (NEGATIVE); URINE COLOR YELLOW
[2017-05-16] MEDS ORDERED: AZITHROMYCIN 1 GM PACKET PO ONE (20:13)
[2017-05-16] MEDS ORDERED: AZITHROMYCIN 500 MG TABLET ONE (20:15)
== END 2017-05-16 20:34 | disposition home or self-care (01) ==
LOC: FER 19:18
DX: R35.0 Frequency of micturition (principal); N40.0 Benign prostatic hyperplasia without lower urinary tract symptoms; F90.9 Attention-deficit hyperactivity disorder, unspecified type; F42.9 Obsessive-compulsive disorder, unspecified; F17.210 Nicotine dependence, cigarettes, uncomplicated
CPT/HCPCS: 36415; 81003; 81015; 87491; 87591; 99281-25

== ENCOUNTER 2017-07-24 00:26 | Emergency (ER) | payer OTHER ==
--- NOTE | 2017-07-24 01:21 | PDOC ---
History of Present Illness - General Chief Complaint: Overdose Stated Complaint: POSSIBLE OVERDOSE Time Seen by Provider: 07/24/17 01:21 History Source: Patient, Parent(s) (mother) Exam Limitations: No Limitations - History of Present Illness Initial Comments: 07/24/17 05:08 27-year-old male with a history of bipolar presents to the emergency department with his mother who states she believes the patient took a double dose of his Seroquel. Patient states he took his normal dose of Seroquel which is 200 mg twice a day. Patient states he felt dizzy(which subsided/room spinning, tired, dry mouth and felt exhausted and tired after taking his normal dose of Seroquel and wishes to go to sleep. He states because he felt exhausted and tired, his mother thought that he took double the amount of Seroquel. Patient denies headache, dizziness, lightheadedness, facial pains, visual disturbance, sore throat, rhinorrhea, cough, nasal congestion, neck pain/stiffness, back pains, chest pain, shortness of breath, flank pains, urinary symptoms. Past History - Past Medical History Allergies/Adverse Reactions: Allergies Allergy/AdvReac Type Severity Reaction Status Date / Time No Known Allergies Allergy Verified 07/24/17 02:21 Home Medications: Ambulatory Orders Sertraline HCl [Zoloft] 100 mg PO DAILY 12/04/16 Quetiapine Fumarate [Seroquel -] 50 mg PO HS 05/01/17 Anemia: No Asthma: No Cancer: No Cardiac Disorders: No CVA: No COPD: No CHF: No Dementia: No Diabetes: No GI Disorders: Yes (dificulty swallowing) Disorders: Yes (BPH ?) HTN: No Hypercholesterolemia: No Liver Disease: No Psychiatric Problems: Yes (SHIZOPHRENIA/ BIPOLAR.) Seizures: No Thyroid Disease: No - Surgical History Abdominal Surgery: No Appendectomy: No Cardiac Surgery: No Cholecystectomy: No Lung Surgery: No Neurologic Surgery: Yes (HEAD) - Immunization History Immunization Up to Date: Yes - Suicide/Smoking/Psychosocial Hx Smoking History: Unknown if ever smoked Have you smoked in the past 12 months: No Number of Cigarettes Smoked Daily: 1 'Breaking Loose' booklet given: 05/01/17 Hx Alcohol Use: No Drug/Substance Use Hx: No Substance Use Type: None Review of Systems - Review of Systems Able to Perform ROS?: Yes Comments:: 07/24/17 05:14 CONSTITUTIONAL: "tired" Absent: fever, chills, diaphoresis, generalized weakness, malaise, loss of appetite HEENT: +dry mouth Absent: rhinorrhea, nasal congestion, throat pain, throat swelling, difficulty swallowing, mouth swelling, ear pain, eye pain, visual Changes CARDIOVASCULAR: Absent: chest pain, loss of consciousness, palpitations, irregular heart rate, peripheral edema RESPIRATORY: Absent: cough, shortness of breath, dyspnea with exertion, orthopnea, wheezing, stridor, hemoptysis GASTROINTESTINAL: Absent: abdominal pain, abdominal distension, nausea, vomiting, diarrhea, constipation, melena, hematochezia GENITOURINARY: Absent: dysuria, frequency, urgency, hesitancy, hematuria, flank pain, genital pain MUSCULOSKELETAL: Absent: myalgia, arthralgia, joint swelling SKIN: Absent: rash, itching, pallor HEMATOLOGIC/IMMUNOLOGIC: Absent: easy bleeding, easy bruising, lymphadenopathy, frequent infections ENDOCRINE: Absent: unexplained weight gain, unexplained weight loss, heat intolerance, cold intolerance NEUROLOGIC: +dizziness/subsided Absent: headache, focal weakness or paresthesias, dizziness, unsteady gait, seizure, mental status changes, bladder or bowel incontinence PSYCHIATRIC: Absent: anxiety, depression, suicidal or homicidal ideation, hallucinations. Is the patient limited Wolof proficient: No *Physical Exam - Vital Signs Last Vital Signs Temp Pulse Resp BP Pulse Ox 98.7 F 97 H 19 116/82 98 07/24/17 01:14 07/24/17 01:14 07/24/17 01:14 07/24/17 01:14 07/24/17 01:14 - Physical Exam Comments: 07/24/17 05:14 GENERAL: Well developed, well nourished. Awake and alert. No acute distress. HEENT: Normocephalic, atraumatic. PERRLA, EOMI. No conjunctival pallor. Sclera are non- icteric. Moist mucous membranes. Oropharynx is clear. NECK: Supple. Full ROM. No JVD. Carotid pulses 2+ and symmetric, without bruits. No thyromegaly. No lymphadenopathy. CARDIOVASCULAR: Regular rate and rhythm. No murmurs, rubs, or gallops. Distal pulses are 2+ and symmetric. PULMONARY: No evidence of respiratory distress. Lungs clear to auscultation bilaterally. No wheezing, rales or rhonchi. ABDOMINAL: Soft. Non-tender. Non-distended. No rebound or guarding. No organomegaly. Normoactive bowel sounds. MUSCULOSKELETAL Normal range of motion at all joints. No bony deformities or tenderness. No CVA tenderness. EXTREMITIES: No cyanosis. No clubbing. No edema. No calf tenderness. SKIN: Warm and dry. Normal capillary refill. No rashes. No jaundice. NEUROLOGICAL: Alert, awake, appropriate. Cranial nerves 2-12 intact. No deficits to light touch and temperature in face, upper extremities and lower extremities. No motor deficits in the in face, upper extremities and lower extremities. Normoreflexic in the upper and lower extremities. Normal speech. Toes are down- going bilaterally. Gait is normal without ataxia. PSYCHIATRIC: Cooperative. Good eye contact. Appropriate mood and affect. Heart Score/ECG Review - History History: Slightly suspicious - Electrocardiogram EKG: Normal - Age Age: >/= 65 - Risk Factors Based on the list above the patient has:: 1-2 risk factors - Troponin Troponin: </= normal limit - Score Heart Score - Total: 3 ED Treatment Course - LABORATORY CBC & Chemistry Diagram: 07/24/17 02:00 07/24/17 02:00 - RADIOLOGY Radiograph Interpretation: 07/24/17 05:33 CXR 1v Portable, NAD *DC/Admit/Observation/Transfer Diagnosis at time of Disposition: Dizziness - Discharge Dispostion Disposition: HOME Condition at time of disposition: Stable Admit: No - Referrals Referrals: Enoc Orantes [Non Staff, Medical] - - Patient Instructions Printed Discharge Instructions: DI for Dizziness-Nonvertigo Additional Instructions: Rest Follow up with your physician Return to the ER for any concerns - Post Discharge Activity
[2017-07-24] MEDS ORDERED: SODIUM CHLORIDE 1,000 ML IV STA (01:23)
[2017-07-24 01:25] VITALS: BMI 25.5
[2017-07-24 02:10] LABS: BASO % 0.4 % (0-2.0); EOS % 1.3 % (0-4.5); HEMATOCRIT 43.7 % (35.4-49); HEMOGLOBIN 14.7 GM/dL (11.7-16.9); LYMPH % 16.9 % (8-40); MCH 29.8 pg (25.7-33.7); MCHC 33.6 g/dl (32.0-35.9); MEAN CELL VOLUME 88.9 fl (80-96); MEAN PLT VOLUME 9.6 fl (7.5-11.1); MONO % 11.5 % (3.8-10.2); NEUT % 69.9 % (42.8-82.8); PLATELET COUNT 176 K/MM3 (134-434); RBC 4.92 M/mm3 (4.00-5.60); RDW 13.3 % (11.9-15.9)
[2017-07-24 02:37] LABS: ALCOHOL < 5.0 mg/dl (0-5)
[2017-07-24 02:38] LABS: ALBUMIN 4.1 g/dl (3.4-5.0); ALK PHOS 55 U/L (45-117); ANION GAP 8 (8-16); BILIRUBIN,TOTAL 0.4 mg/dL (0.2-1.0); BLOOD UREA NITROGEN 15 mg/dL (7-18); CALCIUM 8.9 mg/dL (8.5-10.1); CHLORIDE 104 mmol/L (98-107); CO2 29 mmol/L (21-32); CREATININE 0.9 mg/dL (0.7-1.3); GLUCOSE,RANDOM 99 mg/dL (74-106); POTASSIUM 3.6 mmol/L (3.5-5.1); SGOT/AST 6 U/L (15-37); SGPT/ALT 21 U/L (12-78); SODIUM 141 mmol/L (136-145); TOT PROT 7.3 g/dl (6.4-8.2)
[2017-07-24 02:44] LABS: ACETAMINOPHEN < 2.000 ug/ml (10.0-30.0); SALICYLATE < 4.0 mg/dl (0.0-30.0)
[2017-07-24 04:18] LABS: URINE APPEARANCE CLEAR; URINE BILIRUBIN NEGATIVE (NEGATIVE); URINE BLOOD NEGATIVE (NEGATIVE); URINE COLOR LTYELLOW; URINE GLUCOSE (UA) NEGATIVE (NEGATIVE); URINE KETONE NEGATIVE (NEGATIVE); URINE LEUK ESTERASE NEGATIVE (NEGATIVE); URINE NITRITE NEGATIVE (NEGATIVE); URINE PROTEIN NEGATIVE (NEGATIVE); URINE UROBILINOGEN NEGATIVE mg/dL (0.2-1.0)
[2017-07-24 05:16] LABS: COCAINE, UR NEGATIVE ng/ml (CUTOFF=300); METHADONE, UR NEGATIVE ng/ml (CUTOFF=300); OPIATES, URI NEGATIVE ng/ml (CUTOFF=300); PHENCYCLIDINE,URINE NEGATIVE ng/ml (CUTOFF=25); URINE AMPHETAMINES NEGATIVE ng/ml (CUTOFF=500); URINE BARBITURATES NEGATIVE ng/ml (CUTOFF=200)
[2017-07-24 05:21] LABS: URINE BENZODIAZEPINES NEGATIVE ng/ml (CUTOFF=200)
[2017-07-24 06:30] VITALS: BP 125/68; PULSE 78; TEMP 98.2
--- NOTE | 2017-07-24 10:55 | EKG ---
Test Reason : Blood Pressure : / mmHG Vent. Rate : 081 BPM Atrial Rate : 081 BPM P-R Int : 142 ms QRS Dur : 100 ms QT Int : 372 ms P-R-T Axes : 065 040 054 degrees QTc Int : 432 ms NORMAL SINUS RHYTHM POSSIBLE LEFT ATRIAL ENLARGEMENT RSR' OR QR PATTERN IN V1 SUGGESTS RIGHT VENTRICULAR CONDUCTION DELAY BORDERLINE ECG NO PREVIOUS ECGS AVAILABLE Confirmed by SIGRID SHAFER, BLANK ([id number]) on 07/24/2017 10:55:18 AM Referred By: Confirmed By:BLANK MATTA MD
== END 2017-07-24 06:52 | disposition home or self-care (01) ==
LOC: JER 00:26
PROC: 3E0337Z Introduction of Electrolytic and Water Balance Substance into Peripheral Vein, Percutaneous Approach (ICD-10-PCS; principal; 2017-07-24)
DX: R42 Dizziness and giddiness (principal); F31.89 Other bipolar disorder
CPT/HCPCS: 36415; 71010-TC; 80053; 80307; 81003; 85025; 93005; 93010; 99284-25

== ENCOUNTER 2017-12-24 23:32 | Emergency (ER) | payer OTHER ==
[2017-12-24 23:42] VITALS: BP 113/77; PULSE 104; TEMP 98.6; BMI 25.8
--- NOTE | 2017-12-24 23:49 | PDOC ---
History of Present Illness - General Chief Complaint: Headache Stated Complaint: PAIN/ S.O.B Time Seen by Provider: 12/24/17 23:45 - History of Present Illness Initial Comments: 12/25/17 00:24 The patient is a 27 year old male with a history of Bipolar and schizophrenia, Esophigitis, who presents for evaluation of multiple complaints. The patient reports that he has been experiencing difficulty swallowing over the past few months that he states worsened over the past few days. He normally follows with a GI specialist in [place]. He noted increased in urinary frequency as well as a headache today prompting his presentation to the ED for further evaluation. He otherwise denies fevers, chills, SOB, chest pain, nausea, vomiting, abdominal pain, or changes with bowel movements. Past History - Past Medical History Allergies/Adverse Reactions: Allergies Allergy/AdvReac Type Severity Reaction Status Date / Time No Known Allergies Allergy Verified 12/24/17 23:40 Home Medications: Ambulatory Orders Sertraline HCl [Zoloft] 100 mg PO DAILY 12/04/16 Quetiapine Fumarate [Seroquel -] 50 mg PO HS 05/01/17 Anemia: No Asthma: No Cancer: No Cardiac Disorders: No CVA: No COPD: No CHF: No Dementia: No Diabetes: No GI Disorders: Yes (dificulty swallowing) Disorders: Yes (BPH ?) HTN: No Hypercholesterolemia: No Liver Disease: No Psychiatric Problems: Yes (SHIZOPHRENIA/ BIPOLAR.) Seizures: No Thyroid Disease: No - Surgical History Abdominal Surgery: No Appendectomy: No Cardiac Surgery: No Cholecystectomy: No Lung Surgery: No Neurologic Surgery: Yes (HEAD) - Immunization History Immunization Up to Date: Yes - Suicide/Smoking/Psychosocial Hx Smoking History: Current every day smoker Have you smoked in the past 12 months: No Number of Cigarettes Smoked Daily: 5 Information on smoking cessation initiated: No 'Breaking Loose' booklet given: 05/01/17 Hx Alcohol Use: No Drug/Substance Use Hx: No Substance Use Type: None Review of Systems - Review of Systems Comments:: 12/25/17 00:27 Constitutional: No fevers, chills, fatigue, malaise HEENT: No Rhinorrhea, nasal congestion, visual changes Cardiovascular: No chest pain, syncope, palpitations, lightheadedness Respiratory: No Cough, SOB, Hemoptysis, Gastrointestinal: No Abdominal pain, Nausea, Vomiting, Constipation, Diarrhea, Melena Genitourinary: Increased Frequency. No Dysuria, Urgency, Hesitancy, Hematuria, Flank pain Musculoskeletal: No Myalgia, arthralgia Skin: No rashes, itching, bruising, pallor Neurologic: Headache. No Dizziness, Numbness, Weakness, or Tingling Psychiatric: No Hallucinations. No SI or HI *Physical Exam - Vital Signs Last Vital Signs Temp Pulse Resp BP Pulse Ox 98.6 F 104 H 20 113/77 99 12/24/17 23:41 12/24/17 23:41 12/24/17 23:41 12/24/17 23:41 12/24/17 23:41 - Physical Exam Comments: 12/25/17 00:27 General Appearance: Nourished. No Apparent Distress HEENT: EOMI, NANDA. No Pharyngeal Erythema, Tonsillar Exudate, Tonsillar Erythema Neck: No Cervical Lymphadenopathy Respiratory/Chest: Lungs Clear, Normal Breath Sounds. No Crackles, Rales, Rhonchi, Wheezing Cardiovascular: Regular Rhythm, Regular Rate. No Murmur, Gallops, Rubs Gastrointestinal/Abdominal: Normal Bowel Sounds, Soft. 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 ED Treatment Course - LABORATORY CBC & Chemistry Diagram: 12/25/17 00:34 12/25/17 00:34 Medical Decision Making - Medical Decision Making 12/25/17 00:27 The patient is a 27 year old male with a history of Bipolar and schizophrenia, Esophigitis, who presents for evaluation of multiple complaints. Given the patient's history and physical exam, we will obtain a cbc, cmp, ua to evaluate further for possible etiologies. We will continue to monitor and reassess in the meantime. 12/25/17 03:11 CBC, cmp, ua are unremarkable. We are comfortable discharging the patient home at this time with primary care provider follow up. We discussed the results, plan, and return precautions with the patient who voiced understanding and is agreeable with the plan. *DC/Admit/Observation/Transfer Diagnosis at time of Disposition: Headache Qualifiers: Headache type: unspecified Headache chronicity pattern: unspecified pattern Intractability: not intractable Qualified Code(s): R51 - Headache - Discharge Dispostion Disposition: HOME Condition at time of disposition: Stable Decision to Admit order: No - Referrals Referrals: Chuck Combs MD [Staff Physician] - - Patient Instructions Printed Discharge Instructions: DI for Headache Additional Instructions: Please return to the ER if you experience concerning or worsening symptoms including worsening headache, abdominal pain, or vomiting. Your lab results were normal here in the ER. It is important that you call to schedule a follow up appointment with your primary care provider within 2-3 days to discuss your ER visit and further management of your symptoms. - Post Discharge Activity
[2017-12-25] MEDS ORDERED: ACETAMINOPHEN 325 MG TABLET (FP) PO ONE (00:41)
[2017-12-25 01:41] LABS: URINE APPEARANCE CLEAR; URINE BILIRUBIN NEGATIVE (<2.0 mg/dL); URINE COLOR YELLOW; URINE GLUCOSE (UA) NEGATIVE (NEGATIVE); URINE KETONE NEGATIVE (NEGATIVE); URINE LEUK ESTERASE NEGATIVE (NEGATIVE); URINE NITRITE NEGATIVE (NEGATIVE); URINE PROTEIN NEGATIVE (NEGATIVE); URINE UROBILINOGEN NORMAL mg/dL (0.2-1.0)
[2017-12-25 01:43] LABS: ALBUMIN 4.4 g/dl (3.4-5.0); ANION GAP 7 (8-16); BLOOD UREA NITROGEN 19 mg/dL (7-18); CALCIUM 8.9 mg/dL (8.5-10.1); CHLORIDE 102 mmol/L (98-107); CO2 30 mmol/L (21-32); CREATININE 0.9 mg/dL (0.7-1.3); GLUCOSE,RANDOM 75 mg/dL (74-106); POTASSIUM 3.8 mmol/L (3.5-5.1); SGOT/AST 16 U/L (15-37); SGPT/ALT 24 U/L (12-78); SODIUM 139 mmol/L (136-145)
[2017-12-25 01:45] LABS: ALK PHOS 67 U/L (45-117); BILIRUBIN,TOTAL 0.6 mg/dL (0.2-1.0); TOT PROT 7.5 g/dl (6.4-8.2)
[2017-12-25 02:22] LABS: BASO % 0.2 % (0-2.0); EOS % 2.1 % (0-4.5); HEMATOCRIT 42.4 % (35.4-49); HEMOGLOBIN 14.3 GM/dL (11.7-16.9); LYMPH % 16.5 % (8-40); MCH 29.8 pg (25.7-33.7); MCHC 33.6 g/dl (32.0-35.9); MEAN CELL VOLUME 88.4 fl (80-96); MONO % 8.8 % (3.8-10.2); NEUT % 72.4 % (42.8-82.8); PLATELET COUNT 201 K/MM3 (134-434); RBC 4.79 M/mm3 (4.00-5.60); RDW 13.3 % (11.9-15.9); WHITE BLOOD COUNT 9.8 K/mm3 (4.0-10.0)
== END 2017-12-25 03:16 | disposition home or self-care (01) ==
LOC: JER 23:32
DX: R51 Headache (principal); F31.9 Bipolar disorder, unspecified; F20.9 Schizophrenia, unspecified; K20.9 Esophagitis, unspecified
CPT/HCPCS: 36415; 80053; 81003; 85025; 99281-25

== ENCOUNTER 2017-12-25 07:38 | Emergency (ER) | payer OTHER ==
--- NOTE | 2017-12-25 07:47 | PDOC ---
History of Present Illness - General Chief Complaint: Pain Stated Complaint: LEGS HURT FROM WALKING Time Seen by Provider: 12/25/17 07:47 History Source: Patient Exam Limitations: No Limitations - History of Present Illness Initial Comments: 12/25/17 08:04 Pt presents to the ED complaining of fatigue after walking all night. States that his mother kicked him out and that he walked from [place] to here. Denies nausea, vomiting or fever. He is requesting food. Was evaluated in the ED at [facility] last night with negative work up. Patient has a history of bipolar disorder and schizophrenia, but denies SI, HI or hallucinations. Denies other physical complaints. 12/25/17 08:09 Past History - Past Medical History Allergies/Adverse Reactions: Allergies Allergy/AdvReac Type Severity Reaction Status Date / Time No Known Allergies Allergy Verified 12/25/17 07:40 Home Medications: Ambulatory Orders NK [No Known Home Medication] 12/25/17 Anemia: No Asthma: No Cancer: No Cardiac Disorders: No CVA: No COPD: No CHF: No Dementia: No Diabetes: No GI Disorders: Yes (dificulty swallowing) Disorders: Yes (BPH ?) HTN: No Hypercholesterolemia: No Liver Disease: No Psychiatric Problems: Yes (SHIZOPHRENIA/ BIPOLAR.) Seizures: No Thyroid Disease: No - Surgical History Abdominal Surgery: No Appendectomy: No Cardiac Surgery: No Cholecystectomy: No Lung Surgery: No Neurologic Surgery: Yes (HEAD) - Immunization History Immunization Up to Date: Yes - Suicide/Smoking/Psychosocial Hx Smoking History: Current every day smoker Have you smoked in the past 12 months: No Number of Cigarettes Smoked Daily: 5 'Breaking Loose' booklet given: 05/01/17 Hx Alcohol Use: No Drug/Substance Use Hx: No Substance Use Type: None Review of Systems - Review of Systems Able to Perform ROS?: No Is the patient limited Indonesian proficient: No Constitutional: No: Symptoms Reported, See HPI, Chills, Diaphoresis, Fever, Loss of Appetite, Malaise, Night Sweats, Weakness, Weight Stable, Unintentional Wgt. Loss, Unexplained wgt Loss, Other HEENTM: No: Symptoms Reported, See HPI, Eye Pain, Blurred Vision, Tearing, Recent change in vision, Double Vision, Cataracts, Ear Pain, Ocular Prothesis, Ear Discharge, Nose Pain, Nose Congestion, Tinnitus, Nose Bleeding, Hearing Loss , Throat Pain, Throat Swelling, Mouth Pain, Dental Problems, Difficulty Swallowing, Mouth Swelling, Other Respiratory: No: Symptoms reported, See HPI, Cough, Orthopnea, Shortness of Breath, SOB with Exertion, SOB at Rest, Stridor, Wheezing, Productive cough, Hemoptysis, Other Cardiac (ROS): No: Symptoms Reported, See HPI, Chest Pain, Edema, Irregular Heart Rate, Lightheadedness, Palpitations, Syncope, Chest Tightness, Other ABD/GI: No: Symptoms Reported, See HPI, Abdominal Distended, Abd. Pain w/ defecation, Blood Streaked Bowels, Constipated, Diarrhea, Difficulty Swallowing , Nausea, Poor Appetite, Poor Fluid Intake, Rectal Bleeding, Vomiting, Indigestion, Abdominal cramping, Tarry Stools, Other : No: Symptoms Reported, See HPI, Burning, Dysuria, Discharge, Frequency, Flank Pain, Hematuria, Incontinence, Pain, Urgency, Testicular Mass, Testicular Swelling, Lesions, Testicular Pain, Other Musculoskeletal: No: Symptoms Reported, See HPI, Back Pain, Gout, Joint Pain, Joint Swelling, Muscle Pain, Muscle Weakness, Neck Pain, Joint Stiffness, Other Integumentary: No: Symptoms Reported, See HPI, Bruising, Change in Color, Change in Hair/Nails, Dryness, Erythema, Flushing, Lesions, Lumps, Pallor, Pruritus, Rash, Sweating, Other Neurological: No: Symptoms reported, See HPI, Headache, Numbness, Paresthesia, Pre-Existing Deficit, Seizure, Tingling, Tremors, Weakness, Unsteady Gait, Ataxia, Dizziness, Other Psychiatric: No: Anxiety, Depression, Frequent Crying, Stressors, Sleep Pattern Change, Emotional Problems, Mood Swings, Change in Appetite, Other Endocrine: No: Symptoms Reported, See HPI, Excessive Sweating, Flushing, Intolerance to Cold, Intolerance to Heat, Increased Hunger, Increased Thirst, Increased Urine, Unexplained Weight Gain, Unexplained Weight Loss, Change in Weight, Other Hematologic/Lymphatic: No: Symptoms Reported, See HPI, Anemia, Blood Clots, Easy Bleeding, Easy Bruising, Bleeding Diathesis, Lymph Node Abnormalities, Swollen Glands, Other *Physical Exam - Physical Exam General Appearance: Yes: Nourished, Appropriately Dressed HEENT: positive: Normal ENT Inspection, Normal Voice Neck: positive: Supple Respiratory/Chest: positive: Lungs Clear, Normal Breath Sounds Cardiovascular: positive: Regular Rhythm, Regular Rate, S1, S2 Gastrointestinal/Abdominal: positive: Normal Bowel Sounds Musculoskeletal: positive: Normal Inspection Extremity: positive: Normal Inspection Integumentary: positive: Normal Color, Dry, Warm 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 States that he was recently evicted from his house by his mother. Denies fever, nausea or vomiting or other complaints. Will discharge home with instructions to follow up with his PMD. *DC/Admit/Observation/Transfer Diagnosis at time of Disposition: Muscle ache - Discharge Dispostion Disposition: HOME Condition at time of disposition: Good Decision to Admit order: No - Referrals - Patient Instructions Printed Discharge Instructions: DI for Fatigue Additional Instructions: Return to the ED for new or worsening symptoms, including leg swelling or severe leg pain. Follow up with your primary care doctor. - Post Discharge Activity
[2017-12-25 07:49] VITALS: BP 121/92; PULSE 97; TEMP 98.3; BMI 25.8
== END 2017-12-25 08:11 | disposition home or self-care (01) ==
LOC: FER 07:38
DX: M79.1 Myalgia (principal); F31.9 Bipolar disorder, unspecified; F17.210 Nicotine dependence, cigarettes, uncomplicated
CPT/HCPCS: 99282-25

== ENCOUNTER 2018-11-23 15:58 | Emergency (ER) | payer OTHER ==
[2018-11-23 16:31] VITALS: BP 122/68; PULSE 96; TEMP 98.3; BMI 29.4
--- NOTE | 2018-11-23 16:47 | PDOC ---
History of Present Illness - General History Source: Patient Exam Limitations: No Limitations - History of Present Illness Initial Comments: 11/23/18 16:38 28 yo M with a hx of schizophrenia and bipolar disorder presents to the emergency department upon referral from his group therapy location ([facility]) for evaluation after ingesting 8x 100 mg clonazpine pills last night at 5pm. Per the patient, he ingested the 8 pills because he wanted to get high, but denies suicidal and homicidal ideation and thoughts of self harm. Per the patient, he has been feeling down lately for the past 3 weeks due to failure to progress at the same rate as his family members. Per the patient, he felt 1 hour after ingesting the 8x tablets lightheadedness and unstable gait, but denies LOC and head trauma. He awoke this morning and feels here is nearly back to baseline, but with more tiredness. He was advised by [facility] to present to the emergency department for evaluation of cbc and cmp. He is checked weekly and has not had an abnormality. Denies the following: fever, chills, lightheadedness, headache, visual changes, chest pain, SOB, abdominal pain, dysuria, hematuria, diarrhea, hematochezia, rash, melena, and leg pain/swelling. Shx: Cranial surgery at age of 7; unknown reason Allergies: NKDA Social: Denies tobacco and alcohol use. Endorses marijuana last use 5 days ago. <Tian Rausch - Last Filed: 11/23/18 18:08> <Makayla Floyd - Last Filed: 11/23/18 18:33> - General Chief Complaint: Overdose Stated Complaint: LAB DRAW AFTER TAKING MEDS YESTERDAY Time Seen by Provider: 11/23/18 16:26 Attending Attestation - Resident Resident Name: Tian Rausch - ED Attending Attestation I have performed the following: I have examined & evaluated the patient, The case was reviewed & discussed with the resident, I agree w/resident's findings & plan, Exceptions are as noted - HPI HPI: 28 y/o referred by [facility] Day program afer allegedly ingesting 800mg of Clonazepin, aprox 24 hours ago. Denied any suicidal thoughts, nor any agressive behaviour 11/23/18 18:12 11/23/18 18:14 - Physicial Exam PE: Alert, oriented x 3m fully cooperating, no acute distress 11/23/18 18:16 - Medical Decision Making Lab results , CBC. Chem wnl Instructed to have the day program call this hospital for the report on the urine toxicology <Makayla Floyd - Last Filed: 11/23/18 18:33> Past History - Past Medical History Anemia: No Asthma: No Cancer: No Cardiac Disorders: No CVA: No COPD: No CHF: No Dementia: No Diabetes: No GI Disorders: Yes (dificulty swallowing) Disorders: Yes (BPH ?) HTN: No Hypercholesterolemia: No Liver Disease: No Psychiatric Problems: Yes (SHIZOPHRENIA/ BIPOLAR.) Seizures: No Thyroid Disease: No - Surgical History Abdominal Surgery: No Appendectomy: No Cardiac Surgery: No Cholecystectomy: No Lung Surgery: No Neurologic Surgery: Yes (HEAD) - Immunization History Immunization Up to Date: Yes - Suicide/Smoking/Psychosocial Hx Smoking History: Never smoked Have you smoked in the past 12 months: No Number of Cigarettes Smoked Daily: 5 Information on smoking cessation initiated: No 'Breaking Loose' booklet given: 05/01/17 Hx Alcohol Use: No Drug/Substance Use Hx: No Substance Use Type: None <Tian Rausch - Last Filed: 11/23/18 18:08> <Makayla Floyd - Last Filed: 11/23/18 18:33> - Past Medical History Allergies/Adverse Reactions: Allergies Allergy/AdvReac Type Severity Reaction Status Date / Time No Known Allergies Allergy Verified 11/23/18 16:01 Home Medications: Ambulatory Orders Clozapine 100 mg PO ASDIR 11/23/18 Metformin HCl [Metformin HCl ER] 500 mg PO DAILY 11/23/18 Quetiapine Fumarate [Seroquel] 100 tab PO HS 11/23/18 Sertraline HCl 50 mg PO DAILY 11/23/18 Review of Systems - Review of Systems Able to Perform ROS?: Yes Is the patient limited Grenadian proficient: No Constitutional: No: Chills, Diaphoresis, Fever, Weakness HEENTM: No: Eye Pain, Blurred Vision, Ear Pain, Nose Pain, Throat Pain, Mouth Pain Respiratory: No: Cough, Shortness of Breath, Hemoptysis Cardiac (ROS): No: Chest Pain, Lightheadedness, Palpitations, Syncope ABD/GI: No: Blood Streaked Bowels, Constipated, Diarrhea, Nausea, Rectal Bleeding, Vomiting, Tarry Stools : No: Burning, Dysuria, Hematuria Musculoskeletal: No: Back Pain, Joint Pain, Neck Pain Integumentary: No: Bruising, Erythema, Rash Neurological: No: Headache, Numbness, Tingling, Tremors Psychiatric: Yes: Anxiety, Depression. No: Change in Appetite Endocrine: No: Unexplained Weight Gain Hematologic/Lymphatic: No: Anemia <[place]Tian - Last Filed: 11/23/18 18:08> *Physical Exam - Vital Signs Last Vital Signs Temp Pulse Resp BP Pulse Ox 98.3 F 96 H 20 122/68 99 11/23/18 16:00 11/23/18 16:00 11/23/18 16:00 11/23/18 16:00 11/23/18 16:00 - Physical Exam General Appearance: Yes: Nourished, Appropriately Dressed. No: Apparent Distress, Alcohol on Breath, Intoxicated HEENT: positive: EOMI, NANDA, Normal Voice, Symmetrical, Pharynx Normal, Hearing Grossly Normal. negative: Pale Conjunctivae, Scleral Icterus (R), Scleral Icterus (L), Muffled/Hoarse voice, Pharyngeal Erythema, Tonsillar Exudate, Tonsillar Erythema, Nasal Congestion, Rhinorrhea, Sinus Tenderness, Hearing Decreased, Excessive drooling Neck: positive: Trachea midline, Supple. negative: Tender, Lymphadenopathy (R) , Lymphadenopathy (L), Tender lateral, Tender midline Respiratory/Chest: positive: Lungs Clear, Normal Breath Sounds. negative: Chest Tender, Respiratory Distress, Accessory Muscle Use, Rales, Rhonchi, Stridor, Wheezing, Hyperresonant Cardiovascular: positive: Regular Rhythm, Regular Rate, S1, S2. negative: Systolic Murmur Gastrointestinal/Abdominal: positive: Normal Bowel Sounds, Flat, Soft. negative : Tender, Distended, Guarding, Rebound Lymphatic: negative: Adenopathy Musculoskeletal: positive: Normal Inspection. negative: CVA Tenderness, Vertebral Tenderness Extremity: positive: Normal Capillary Refill, Normal Inspection, Normal Range of Motion. negative: Tender, Swelling, Calf Tenderness Integumentary: positive: Normal Color, Dry, Warm. 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 negative: Facial Droop, Numbness, Sensory Deficit <Tian Rausch - Last Filed: 11/23/18 18:08> - Vital Signs Last Vital Signs Temp Pulse Resp BP Pulse Ox 98.3 F 96 H 20 122/68 99 11/23/18 16:00 11/23/18 16:00 11/23/18 16:00 11/23/18 16:00 11/23/18 16:00 <Makayla Floyd - Last Filed: 11/23/18 18:33> ED Treatment Course - LABORATORY CBC & Chemistry Diagram: 11/23/18 16:46 11/23/18 16:46 <Tian Rausch - Last Filed: 11/23/18 18:08> - LABORATORY CBC & Chemistry Diagram: 11/23/18 16:46 11/23/18 16:46 - ADDITIONAL ORDERS Additional order review: Laboratory Results 11/23/18 16:46 Sodium 139 Potassium 3.6 Chloride 104 Carbon Dioxide 23 Anion Gap 12 BUN 14 Creatinine 0.8 Creat Clearance w eGFR 116.85 Random Glucose 112 H Calcium 8.6 Total Bilirubin 0.6 AST 15 ALT 13 Alkaline Phosphatase 81 Total Protein 7.0 Albumin 4.0 11/23/18 16:46 RBC 4.74 MCV 85.9 MCHC 33.2 RDW 12.4 MPV 8.8 Neutrophils % 67.6 Lymphocytes % 24.8 Monocytes % 7.1 Eosinophils % 0.2 Basophils % 0.3 <Makayla Floyd - Last Filed: 11/23/18 18:33> Medical Decision Making - Medical Decision Making 28 yo M with a hx of schizophrenia and bipolar disorder presents to the emergency department upon referral from his group therapy location ([facility]) for evaluation after ingesting 8x 100 mg clonazpine pills last night at 5pm. Initial vitals: Initial Vital Signs Temp Pulse Resp BP Pulse Ox 98.3 F 96 H 20 122/68 99 11/23/18 16:00 11/23/18 16:00 11/23/18 16:00 11/23/18 16:00 11/23/18 16:00 Work up": will obtain cbc and cmp. need to evaluate for possible agranulocytosis. No petechial rash, no bleeding in the gums, no fever, no chest pain or shortness of breath. Denies suicidal ideation and homicidal ideation or intention to harm himself. He endorses wanting to get high. Laboratory Tests 11/23/18 11/23/18 16:46 16:46 WBC 6.1 RBC 4.74 Hgb 13.5 Hct 40.7 MCV 85.9 MCH 28.5 MCHC 33.2 RDW 12.4 Plt Count 216 MPV 8.8 Absolute Neuts (auto) 4.2 Neutrophils % 67.6 Lymphocytes % 24.8 Monocytes % 7.1 Eosinophils % 0.2 Basophils % 0.3 Sodium 139 Potassium 3.6 Chloride 104 Carbon Dioxide 23 Anion Gap 12 BUN 14 Creatinine 0.8 Creat Clearance w eGFR 116.85 Random Glucose 112 H Calcium 8.6 Total Bilirubin 0.6 AST 15 ALT 13 Alkaline Phosphatase 81 Total Protein 7.0 Albumin 4.0 no agranulocytosis. patient's drug screen pending for urine. patient is stable at discharge and will be discharged with his mother present and will follow up with [facility]. Patient was able to ambulate on his own volition. Dispo: Discharge <Tian Rausch - Last Filed: 11/23/18 18:08> *DC/Admit/Observation/Transfer - Discharge Dispostion Decision to Admit order: No <Tian Rausch - Last Filed: 11/23/18 18:08> <Makayla Floyd - Last Filed: 11/23/18 18:33> Diagnosis at time of Disposition: Overdose Qualifiers: Encounter type: initial encounter Injury intent: undetermined intent Qualified Code(s): T50.904A - Poisoning by unspecified drugs, medicaments and biological substances, undetermined, initial encounter - Discharge Dispostion Disposition: HOME Condition at time of disposition: Stable - Referrals Referrals: Vinnie Mei MD [Other] - Patient Instructions Additional Instructions: please return to the emergency department if you have worsening symptoms or new concerning symptoms such as lightheadedness, unstable walk, chest pain, easy bleeding, uncontrollable nausea and vomiting, and confusion. please follow up with your psychiatrist within 1 week after discharge and continue to go to [facility] on your regular schedule. continue to follow their recommendation on your medication. thank you.
[2018-11-23 17:07] LABS: BASO % 0.3 % (0-2.0); EOS % 0.2 % (0-4.5); HEMATOCRIT 40.7 % (35.4-49); HEMOGLOBIN 13.5 GM/dl (11.7-16.9); LYMPH % 24.8 % (8-40); MCH 28.5 pg (25.7-33.7); MCHC 33.2 g/dl (32.0-35.9); MEAN CELL VOLUME 85.9 fl (80-96); MEAN PLT VOLUME 8.8 fl (7.5-11.1); MONO % 7.1 % (3.8-10.2); NEUT % 67.6 % (42.8-82.8); PLATELET COUNT 216 K/MM3 (134-434); RBC 4.74 M/mm3 (4.00-5.60); RDW 12.4 % (11.9-15.9); WHITE BLOOD COUNT 6.1 K/mm3 (4.0-10.8)
[2018-11-23 17:26] LABS: ALK PHOS 81 U/L (45-117); ANION GAP 12 MMOL/L (8-16); BILIRUBIN,TOTAL 0.6 mg/dl (0.2-1); BLOOD UREA NITROGEN 14 mg/dl (7-18); CALCIUM 8.6 mg/dl (8.5-10); CHLORIDE 104 mmol/L (98-107); CO2 23 mmol/L (21-32); CREATININE 0.8 mg/dl (0.55-1.3); GLUCOSE,RANDOM 112 mg/dl (74-106); POTASSIUM 3.6 mmol/L (3.5-5.1); SGOT/AST 15 U/L (15-37); SGPT/ALT 13 U/L (13-61); SODIUM 139 mmol/L (136-145)
[2018-11-23 18:38] LABS: COCAINE, UR NEGATIVE ng/ml (CUTOFF=300); METHADONE, UR NEGATIVE ng/ml (CUTOFF=300); OPIATES, URI NEGATIVE ng/ml (CUTOFF=300); PHENCYCLIDINE,URINE NEGATIVE ng/ml (CUTOFF=25); URINE AMPHETAMINES NEGATIVE ng/ml (CUTOFF=500); URINE BARBITURATES NEGATIVE ng/ml (CUTOFF=200); URINE BENZODIAZEPINES NEGATIVE ng/ml (CUTOFF=200)
--- NOTE | 2018-11-23 18:54 | PDOC ---
Documentation entered by Katie Farooq SCRIBE, acting as scribe for Makayla Floyd MD. Makayla Floyd MD: This documentation has been prepared by the Oseas sage Xhesika, SCRIBE, under my direction and personally reviewed by me in its entirety. I confirm that the documentation accurately reflects all work, treatment, procedures, and medical decision making performed by me. Attending Attestation - Resident Resident Name: Tian Rausch - ED Attending Attestation I have performed the following: I have examined & evaluated the patient, The case was reviewed & discussed with the resident, I agree w/resident's findings & plan, Exceptions are as noted - HPI HPI: 11/23/18 18:40 The patient is a 28 year old male with a significant past medical history of schizophrenia and bipolar disorder who presents to the emergency department from [facility] for evaluation after ingesting 8x 100 mg clonazpine pills last night at 5pm. The patient states he took the pills because he wanted to get high, however, he denies suicidal and homicidal ideation and thoughts of self harm. The patient states lightheadedness and unstable gait after 1 hour of ingesting the pills. The patient states he is almost at his baseline, but he feels more tiredness. The patient denies LOC or head trauma. The patient denies chest pain, shortness of breath, headache or dizziness. The patient denies fever, chills, nausea, vomit, diarrhea or constipation. The patient denies dysuria, frequency, urgency or hematuria. Allergies: NKDA Past surgical history: Cranial surgery at age of 7 Social history: Denies tobacco and alcohol use. Endorses marijuana last use 5 days ago. - Physicial Exam PE: 11/23/18 18:52 GENERAL: Awake, alert, and fully oriented, in no acute distress HEAD: No signs of trauma EYES: PERRLA, EOMI, sclera anicteric, conjunctiva clear ENT: Auricles normal inspection, hearing grossly normal, nares patent, oropharynx clear without exudates. Moist mucosa NECK: Normal ROM, supple, no lymphadenopathy, JVD, or masses LUNGS: Breath sounds equal, clear to auscultation bilaterally. No wheezes, and no crackles HEART: Regular rate and rhythm, normal S1 and S2, no murmurs, rubs or gallops ABDOMEN: Soft, nontender, normoactive bowel sounds. No guarding, no rebound. No masses EXTREMITIES: Normal range of motion, no edema. No clubbing or cyanosis. No cords, erythema, or tenderness NEUROLOGICAL: Fully Oriented, Alert, Normal Mood/Affect, Normal Response, Motor Strength 5/5. Cranial nerves II through XII grossly intact. Normal speech, normal gait - Medical Decision Making 18:55
== END 2018-11-23 17:47 | disposition home or self-care (01) ==
LOC: FER 15:58
DX: T42.4X1A Poisoning by benzodiazepines, accidental (unintentional), initial encounter (principal); F20.9 Schizophrenia, unspecified; R13.19 Other dysphagia
CPT/HCPCS: 36415; 80053; 80307; 85025; 99283-25

== ENCOUNTER 2019-08-29 17:15 | Emergency (ER) | payer OTHER ==
[2019-08-29 17:29] VITALS: BMI 29.4
--- NOTE | 2019-08-29 17:43 | PDOC ---
Rapid Medical Evaluation Chief Complaint: Overdose Time Seen by Provider: 08/29/19 17:29 Medical Evaluation: Allergies Allergy/AdvReac Type Severity Reaction Status Date / Time No Known Allergies Allergy Verified 08/29/19 17:29 Vital Signs Temp Pulse Resp BP Pulse Ox 98.4 F 99 H 20 107/70 99 08/29/19 17:28 08/29/19 17:28 08/29/19 17:28 08/29/19 17:28 08/29/19 17:28 08/29/19 17:41 Pt c/o: took 12 10mg clozaril tabs yesterday to get "high" hx of schizophrenia, no c/o hematuria, pettechiae, cp, and pain, or increased bruising denies SI/HI Pt on brief exam: vss, slightly manic pt ordered for: cbc, comp, ekg, urine Pt to proceed to the ED Discharge Disposition - 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
[2019-08-29 18:05] LABS: BASO % 0.4 % (0-2.0); EOS % 0.7 % (0-4.5); HEMATOCRIT 40.8 % (35.4-49); HEMOGLOBIN 13.7 GM/dL (11.7-16.9); LYMPH % 28.3 % (8-40); MCH 28.6 pg (25.7-33.7); MCHC 33.5 g/dl (32.0-35.9); MEAN CELL VOLUME 85.4 fl (80-96); MONO % 7.2 % (3.8-10.2); NEUT % 63.4 % (42.8-82.8); PLATELET COUNT 219 K/MM3 (134-434); RBC 4.77 M/mm3 (4.00-5.60); RDW 13.5 % (11.9-15.9); WHITE BLOOD COUNT 7.1 K/mm3 (4.0-10.0)
[2019-08-29 18:07] LABS: URINE APPEARANCE CLEAR; URINE BILIRUBIN NEGATIVE (NEGATIVE); URINE COLOR YELLOW; URINE GLUCOSE (UA) NEGATIVE (NEGATIVE); URINE KETONE TRACE (NEGATIVE); URINE LEUK ESTERASE NEGATIVE (NEGATIVE); URINE NITRITE NEGATIVE (NEGATIVE); URINE PROTEIN TRACE (NEGATIVE)
[2019-08-29 18:33] LABS: ALBUMIN 3.8 g/dl (3.4-5.0); BILIRUBIN,TOTAL 0.3 mg/dL (0.2-1); BLOOD UREA NITROGEN 15.6 mg/dL (7-18); CALCIUM 8.6 mg/dL (8.5-10.1); CREATININE 1.1 mg/dL (0.55-1.3); POTASSIUM 3.6 mmol/L (3.5-5.1); TOT PROT 7.2 g/dl (6.4-8.2)
--- NOTE | 2019-08-29 22:24 | PDOC ---
*Physical Exam - Vital Signs Last Vital Signs Temp Pulse Resp BP Pulse Ox 98.4 F 99 H 20 107/70 99 08/29/19 17:28 08/29/19 17:28 08/29/19 17:28 08/29/19 17:28 08/29/19 17:28 ED Treatment Course - LABORATORY CBC & Chemistry Diagram: 08/29/19 17:48 08/29/19 17:48 - ADDITIONAL ORDERS Additional order review: Laboratory Results 08/29/19 08/29/19 17:48 17:48 Sodium 140 Potassium 3.6 Chloride 108 H Carbon Dioxide 24 Anion Gap 8 BUN 15.6 Creatinine 1.1 Est GFR (CKD-EPI)AfAm 106.06 Est GFR (CKD-EPI)NonAf 91.51 Random Glucose 99 Calcium 8.6 Total Bilirubin 0.3 AST 10 L ALT 19 Alkaline Phosphatase 75 Total Protein 7.2 Albumin 3.8 Urine Color Yellow Urine Appearance Clear Urine pH 6.0 Ur Specific Gila 1.026 Urine Protein Trace Urine Glucose (UA) Negative Urine Ketones Trace H Urine Blood Negative Urine Nitrite Negative Urine Bilirubin Negative Urine Urobilinogen 1.0 Ur Leukocyte Esterase Negative 08/29/19 17:48 RBC 4.77 MCV 85.4 MCHC 33.5 RDW 13.5 MPV 9.0 Neutrophils % 63.4 Lymphocytes % 28.3 D Monocytes % 7.2 Eosinophils % 0.7 Basophils % 0.4 Medical Decision Making - Medical Decision Making 08/29/19 22:24 Patient seen by the advanced practice provider under my direct supervision. Ancillary testing reviewed as necessary. I agree with plan as outlined by the advanced practice provider. 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
--- NOTE | 2019-08-29 22:30 | PDOC ---
History of Present Illness - General Chief Complaint: Overdose Stated Complaint: DIZZINESS Time Seen by Provider: 08/29/19 17:29 History Source: Patient - History of Present Illness Initial Comments: 08/29/19 22:24 29 year old male reports that he took 12 tablets of clozapine 100 mg tab at 6pm 08/28/2019 reports that he was hoping it would help him sleep longer. patient reports he felt dizziness 2 hours after taking. patient reports that he came to the ER today because he told his mother about it today. patient denies any symptoms. denies Auditory hallucinations/ delusions denies SI / HI. patient is in a day program at [facility] PMHX: schizophrenia; bipolar disorder, esophagitis Past History - Past Medical History Allergies/Adverse Reactions: Allergies Allergy/AdvReac Type Severity Reaction Status Date / Time No Known Allergies Allergy Verified 08/29/19 17:29 Home Medications: Ambulatory Orders Clozapine 100 mg PO ASDIR 11/23/18 Sertraline HCl 100 mg PO DAILY 11/23/18 metFORMIN HCL [Metformin HCl ER] 500 mg PO DAILY 11/23/18 Azelastine/Fluticasone [Dymista Nasal [place]] 1 sprays NS ASDIR 08/29/19 Cetirizine HCl [All Day Allergy] 10 mg PO DAILY 08/29/19 Anemia: No Asthma: No Cancer: No Cardiac Disorders: No CVA: No COPD: No CHF: No Dementia: No Diabetes: No GI Disorders: Yes (dificulty swallowing) Disorders: Yes (BPH ?) HTN: No Hypercholesterolemia: No Liver Disease: No Psychiatric Problems: Yes (SHIZOPHRENIA/ BIPOLAR.) Seizures: No Thyroid Disease: No - Surgical History Abdominal Surgery: No Appendectomy: No Cardiac Surgery: No Cholecystectomy: No Lung Surgery: No Neurologic Surgery: Yes (HEAD) - Immunization History Immunization Up to Date: Yes - Psycho Social/Smoking Cessation Hx Smoking History: Unknown if ever smoked Have you smoked in the past 12 months: No Number of Cigarettes Smoked Daily: 5 'Breaking Loose' booklet given: 05/01/17 Hx Alcohol Use: No Drug/Substance Use Hx: No Substance Use Type: None *Physical Exam - Vital Signs Last Vital Signs Temp Pulse Resp BP Pulse Ox 98.4 F 99 H 20 107/70 99 08/29/19 17:28 08/29/19 17:28 08/29/19 17:28 08/29/19 17:28 08/29/19 17:28 - Physical Exam General Appearance: Yes: Appropriately Dressed, Other (+ eye contact) Respiratory/Chest: positive: Lungs Clear, Normal Breath Sounds Cardiovascular: positive: Regular Rhythm, Regular Rate Gastrointestinal/Abdominal: positive: Normal Bowel Sounds, Soft. negative: Tender Integumentary: positive: Normal Color, Dry, Warm Neurologic: positive: Fully Oriented, Alert ED Treatment Course - LABORATORY CBC & Chemistry Diagram: 08/29/19 17:48 08/29/19 17:48 - ADDITIONAL ORDERS Additional order review: Laboratory Results 08/29/19 08/29/19 17:48 17:48 Sodium 140 Potassium 3.6 Chloride 108 H Carbon Dioxide 24 Anion Gap 8 BUN 15.6 Creatinine 1.1 Est GFR (CKD-EPI)AfAm 106.06 Est GFR (CKD-EPI)NonAf 91.51 Random Glucose 99 Calcium 8.6 Total Bilirubin 0.3 AST 10 L ALT 19 Alkaline Phosphatase 75 Total Protein 7.2 Albumin 3.8 Urine Color Yellow Urine Appearance Clear Urine pH 6.0 Ur Specific [place] 1.026 Urine Protein Trace Urine Glucose (UA) Negative Urine Ketones Trace H Urine Blood Negative Urine Nitrite Negative Urine Bilirubin Negative Urine Urobilinogen 1.0 Ur Leukocyte Esterase Negative 08/29/19 17:48 RBC 4.77 MCV 85.4 MCHC 33.5 RDW 13.5 MPV 9.0 Neutrophils % 63.4 Lymphocytes % 28.3 D Monocytes % 7.2 Eosinophils % 0.7 Basophils % 0.4 Medical Decision Making - Medical Decision Making 08/29/19 23:20 A: overdose P: Poison control contacted. Bekah Chang RN: recommends no further evaluation at this time 08/29/19 23:22 08/29/19 23:58 patient with poor judgment. need Psych clearance for discharge 08/30/19 00:03 I spoke to Glen Johnson NP. recommends 1:1 evaluation in the AM 08/30/19 0700: patient signed out to MAKENZIE Witt/ Dr. Amador. patient is pending urine toxicology and ophthalmic aide evaluation. Discharge - Discharge Information Problems reviewed: Yes Clinical Impression/Diagnosis: FDC current use of clozapine, Intentional overdose of drug in tablet form , Paranoid schizophrenia Condition: Stable Disposition: HOME - Follow up/Referral Referrals: Joyce Pate MD [Primary Care Provider] - - Patient Discharge Instructions Patient Printed Discharge Instructions: DI for Accidental Ingestion -- Adult, DI for Drug Overdose in Adults - Post Discharge Activity
--- NOTE | 2019-08-30 07:25 | PDOC ---
*Physical Exam - Vital Signs Last Vital Signs Temp Pulse Resp BP Pulse Ox 98.4 F 83 18 111/69 97 08/29/19 17:28 08/30/19 06:48 08/30/19 06:48 08/30/19 06:48 08/30/19 06:48 - Physical Exam 08/30/19 07:[address] barraza. Patient is a 29-year-old male with history of paranoid schizophrenia who presented after consuming 10 Clozepine tablets. Patient denies suicidal ideations. Patient seen by MAKENZIE Johnson of psychiatry and cleared for discharge. Patient medically cleared previously. 08/30/19 07:26 ED Treatment Course - LABORATORY CBC & Chemistry Diagram: 08/29/19 17:48 08/29/19 17:48 - ADDITIONAL ORDERS Additional order review: Laboratory Results 08/30/19 08/30/19 01:47 01:47 Salicylates < 1.7 L Acetaminophen <2.0 Alcohol, Quantitative < 3 08/29/19 17:48 RBC 4.77 MCV 85.4 MCHC 33.5 RDW 13.5 MPV 9.0 Neutrophils % 63.4 Lymphocytes % 28.3 D Monocytes % 7.2 Eosinophils % 0.7 Basophils % 0.4 Discharge - Discharge Information Problems reviewed: Yes Clinical Impression/Diagnosis: correction current use of clozapine, Intentional overdose of drug in tablet form , Paranoid schizophrenia Condition: Stable Disposition: HOME - Follow up/Referral Referrals: Joyce Pate MD [Primary Care Provider] - - Patient Discharge Instructions Patient Printed Discharge Instructions: DI for Accidental Ingestion -- Adult, DI for Drug Overdose in Adults - Post Discharge Activity
--- NOTE | 2019-08-30 07:44 | PN ---
Mental Health Exam - Mental Status Exam Alert and Oriented to: Time, Place, Person Cognitive Function: Good Patient Appearance: Well Groomed Mood: Apprehensive, Hopeful Affect: Appropriate Patient Behavior: Cooperative Speech Pattern: Clear Voice Loudness: Mildly Soft/Quiet Thought Process: Circumstantial, Tangential Thought Disorder: Not Present Hallucinations: Denies Suicidal Ideation: Denies (denies any plan or ideation) Homicidal Ideation: None Insight/Judgement: Fair Sleep: Well Appetite: Good Muscle strength/Tone: Normal Gait/Station: Deferred Additional Comments: This is a 29 yo male with schizoaffective history. Currently managed at [facility] with therapist Yenny Alejandro. Client has taked thrice dose lst , in an effort to slee better, then skipped doses all weekend, brought here by sister. denies si hi ah or VH. plan. CBC with diff, for ANC. may discontinture suicidal 1;1 watch. follow up with counsellor at [facility].
[2019-08-30 07:48] VITALS: PULSE 77; TEMP 97.7
[2019-08-30 07:58] VITALS: BP 113/73
--- NOTE | 2019-08-30 11:38 | EKG ---
Test Reason : Blood Pressure : / mmHG Vent. Rate : 079 BPM Atrial Rate : 079 BPM P-R Int : 152 ms QRS Dur : 098 ms QT Int : 360 ms P-R-T Axes : 046 042 051 degrees QTc Int : 412 ms NORMAL SINUS RHYTHM INCOMPLETE RIGHT BUNDLE BRANCH BLOCK BORDERLINE ECG WHEN COMPARED WITH ECG OF 24-JUL-2017 02:30, NO SIGNIFICANT CHANGE WAS FOUND Confirmed by Shane Rodriguez MD ([id number]) on 08/30/2019 11:38:01 AM Referred By: Confirmed By:Shane Rodriguez MD
== END 2019-08-30 08:01 | disposition home or self-care (01) ==
LOC: JER 17:15
DX: T42.4X2A Poisoning by benzodiazepines, intentional self-harm, initial encounter (principal); R42 Dizziness and giddiness; F20.0 Paranoid schizophrenia; F31.9 Bipolar disorder, unspecified; Y92.038 Other place in apartment as the place of occurrence of the external cause; Z87.19 Personal history of other diseases of the digestive system
CPT/HCPCS: 36415; 80053; 80307; 81003; 85025; 93005; 93010; 99284-25

== ENCOUNTER 2022-11-12 17:15 | Emergency (ER) | payer OTHER ==
[2022-11-12 17:35] VITALS: TEMP 99.6; BMI 25.8
[2022-11-12] MEDS ORDERED: LACTATED RINGERS SOLUTION 1000 ML INFUS.BAG IV ONE (18:13)
[2022-11-12] MEDS ORDERED: ACETAMINOPHEN 1000 MG/100 ML BAG IVPB ONE (18:13)
[2022-11-12] MEDS ORDERED: ONDANSETRON 4 MG/2 ML VIAL IVPUSH ONE (18:13)
[2022-11-12] MEDS ORDERED: ONDANSETRON 4 MG/2 ML VIAL ONE (18:45)
[2022-11-12] MEDS ORDERED: ACETAMINOPHEN INJECTION 100 ML IVPB ONE (18:45)
[2022-11-12 19:29] LABS: BASO % 0.2 % (0-2.0); HEMATOCRIT 38.5 % (35.4-49); HEMOGLOBIN 13.3 GM/dL (11.7-16.9); LYMPH % 5.5 % (8-40); MCH 29.2 pg (25.7-33.7); MCHC 34.6 g/dl (32.0-35.9); MEAN CELL VOLUME 84.4 fl (80-96); MEAN PLT VOLUME 8.9 fl (7.5-11.1); MONO % 9.4 % (3.8-10.2); NEUT % 84.9 % (42.8-82.8); PLATELET COUNT 142 10^3/uL (134-434); RBC 4.56 M/mm3 (4.00-5.60); RDW 13.6 % (11.9-15.9); WHITE BLOOD COUNT 6.6 K/mm3 (4.0-10.0)
[2022-11-12 19:34] LABS: BLOOD UREA NITROGEN 15.7 mg/dL (7-18); CALCIUM 8.9 mg/dL (8.5-10.1)
[2022-11-12 19:39] LABS: BILIRUBIN,TOTAL 0.4 mg/dL (0.2-1); TOT PROT 7.4 g/dl (6.4-8.2)
[2022-11-12] MEDS ORDERED: KETOROLAC TROMETHAMINE 15 MG/ML VIAL IVPUSH ONE (20:11)
[2022-11-12] MEDS ORDERED: KETOROLAC TROMETHAMINE 15 MG/ML VIAL ONE (20:31)
[2022-11-12 21:33] LABS: PH,URINE 6.5 (5.0-8.0); URINE APPEARANCE CLEAR; URINE BILIRUBIN NEGATIVE (NEGATIVE); URINE COLOR YELLOW; URINE GLUCOSE (UA) NEGATIVE (NEGATIVE); URINE KETONE NEGATIVE (NEGATIVE); URINE LEUK ESTERASE NEGATIVE (NEGATIVE); URINE NITRITE NEGATIVE (NEGATIVE); URINE PROTEIN NEGATIVE (NEGATIVE); URINE UROBILINOGEN 0.2 mg/dL (0.2-1.0)
[2022-11-12 21:44] VITALS: BP 103/71; PULSE 77; RESP 16
== END 2022-11-12 23:35 | disposition home or self-care (01) ==
LOC: JER 17:15
PROC: 3E033GC Introduction of Other Therapeutic Substance into Peripheral Vein, Percutaneous Approach (ICD-10-PCS; principal; 2022-11-12)
DX: R51.9 Headache, unspecified (principal); R09.81 Nasal congestion; R11.0 Nausea; R05.9 Cough, unspecified; G47.9 Sleep disorder, unspecified; F60.0 Paranoid personality disorder; R07.0 Pain in throat; Z20.822 Contact with and (suspected) exposure to COVID-19
CPT/HCPCS: 0241U-QW; 36415; 70450-TC; 80053; 81003; 85025; 93005; 93010; 99285-25

== ENCOUNTER 2023-03-18 17:48 | Emergency (ER) | payer OTHER ==
[2023-03-18 18:10] VITALS: BP 117/72; PULSE 81; RESP 18; TEMP 98.3; BMI 26.5
[2023-03-18] MEDS ORDERED: KETOROLAC TROMETHAMINE 30 MG/1 ML VIAL IM ONE (18:40)
[2023-03-18] MEDS ORDERED: diazePAM 5 MG TABLET PO ONE (19:30)
[2023-03-18] MEDS ORDERED: diazePAM 5 MG TABLET ONE (19:33)
== END 2023-03-18 21:54 | disposition home or self-care (01) ==
LOC: JERFT 17:48
PROC: 3E0233Z Introduction of Anti-inflammatory into Muscle, Percutaneous Approach (ICD-10-PCS; principal; 2023-03-18)
DX: S80.212A Abrasion, left knee, initial encounter (principal); M54.50 Low back pain, unspecified; W21.02XA Struck by soccer ball, initial encounter; Y93.66 Activity, soccer; Y92.322 Soccer field as the place of occurrence of the external cause
CPT/HCPCS: 72100-TC-FY; 99284-25

== ENCOUNTER 2024-03-23 12:16 | Emergency (ER) | payer OTHER ==
[2024-03-23 12:23] VITALS: BP 112/73; PULSE 66; RESP 18; TEMP 97.5; BMI 18.2
[2024-03-23] MEDS: DIPHTH,PERTUSS(ACELL),TET 0.5 ML DISP.SYRIN IM ONE (12:35)
[2024-03-23] MEDS ORDERED: DIPHTH,PERTUSS(ACELL),TET 0.5 ML DISP.SYRIN IM ONE (12:36)
== END 2024-03-23 12:54 | disposition home or self-care (01) ==
LOC: JERFT 12:16
PROC: 3E0234Z Introduction of Serum, Toxoid and Vaccine into Muscle, Percutaneous Approach (ICD-10-PCS; principal; 2024-03-23)
DX: S60.221A Contusion of right hand, initial encounter (principal); W01.0XXA Fall on same level from slipping, tripping and stumbling without subsequent striking against object, initial encounter; Y93.66 Activity, soccer; Z23 Encounter for immunization
CPT/HCPCS: 73130-TC-RT-FY; 90471; 90715; 99283-25

== ENCOUNTER 2024-08-10 15:42 | Emergency (ER) | payer OTHER ==
[2024-08-10 15:53] VITALS: RESP 18; BMI 25.8
[2024-08-10] MEDS ORDERED: ACETAMINOPHEN 500 MG TABLET (FP) ONE (16:55)
[2024-08-10] MEDS ORDERED: FAMOTIDINE 20 MG TABLET ONE (16:55)
[2024-08-10] MEDS: FAMOTIDINE 10 MG TABLET PO ONE (17:07)
[2024-08-10] MEDS: ACETAMINOPHEN 325 MG TABLET (FP) PO ONE (17:07)
[2024-08-10] MEDS: IBUPROFEN 600 MG TABLET (FP) PO ONE (18:34)
[2024-08-10] MEDS ORDERED: IBUPROFEN 600 MG TABLET (FP) PO ONE (18:35)
[2024-08-10 19:02] VITALS: BP 108/55; TEMP 101.5
[2024-08-10 19:27] VITALS: PULSE 104
== END 2024-08-10 19:49 | disposition home or self-care (01) ==
LOC: JER 15:42
DX: J10.1 Influenza due to other identified influenza virus with other respiratory manifestations (principal); M79.10 Myalgia, unspecified site; R09.81 Nasal congestion; R05.9 Cough, unspecified; R10.9 Unspecified abdominal pain; R50.9 Fever, unspecified; R00.0 Tachycardia, unspecified; Z20.822 Contact with and (suspected) exposure to COVID-19
CPT/HCPCS: 0241U-QW; 99283-25